=== PATIENT | female | born 1945 | race Caucasian/White ===

== ENCOUNTER 2022-06-13 12:02 | Outpatient (REF) | payer MEDICARE, SELFPAY ==
[2022-06-13 12:26] LABS: MANUAL DIFF FLAG NO
[2022-06-13 13:00] LABS: Basophils Absolute Auto 0.1 X10*3/uL (0.0-0.2); Basophils Percent Auto 1.2 % (0-2); Eosinophils Absolute Auto 0.1 X10*3/uL (0.0-0.4); Eosinophils Percent Auto 2.8 % (0-4); Hematocrit 34.3 % (37.0-47.0); Hemoglobin 10.8 g/dl (12.0-16.0); Imm Gran Abs Auto 0.02 X10*3/uL (0.00-0.03); Imm Gran Pct Auto 0.4 % (0.0-0.4); Lymphocytes Absolute Auto 1.3 X10*3/uL (1.2-4.9); Lymphocytes Percent Auto 25.9 % (20-40); Mean Corpuscular HGB Conc 31.5 g/dl (31.0-35.0); Mean Corpuscular Hemoglobin 25.2 pg (27.0-33.0); Mean Platelet Volume 10.6 fL (9.4-12.3); Monocytes Absolute Auto 0.5 X10*3/uL (0.1-1.2); Monocytes Percent Auto 10.4 % (2-11); Neutrophils Percent Auto 59.3 % (45-73); Platelet Count 311 X10*3/uL (160-400); Red Blood Count 4.29 X10*6/uL (4.20-5.50); Red Cell Distribution Width 19.2 % (11.0-16.0)
[2022-06-13 13:46] LABS: Ferritin 29 ng/mL (10-250)
[2022-06-13 13:52] LABS: Vitamin B12 470 pg/mL (200-900)
== END 2022-06-13 12:03 | disposition home or self-care (01) ==
LOC: HO.LAB 12:02
PROVIDERS: PCP Internal Medicine; Visit Provider Internal Medicine
DX: D64.9 Anemia, unspecified (principal); E03.8 Other specified hypothyroidism; E88.09 Other disorders of plasma-protein metabolism, not elsewhere classified; I10 Essential (primary) hypertension
CPT/HCPCS: 36415; 82607; 82728; 84443; 85025

== ENCOUNTER 2023-02-04 15:29 | Outpatient (REF) | payer MEDICARE, SELFPAY ==
[2023-02-04 16:58] LABS: Basophils Percent Auto 0.7 % (0-2); Imm Gran Abs Auto 0.01 X10*3/uL (0.00-0.03); Imm Gran Pct Auto 0.2 % (0.0-0.4); MANUAL DIFF FLAG SCAN; Red Cell Distribution Width 21.2 % (11.0-16.0); SCAN SMEAR FLAG 1
[2023-02-04 17:00] LABS: Lymphocytes Absolute Auto 1.1 X10*3/uL (1.2-4.9); Lymphocytes Percent Auto 27.5 % (20-40); Mean Corpuscular HGB Conc 28.3 g/dl (31.0-35.0); Mean Corpuscular Hemoglobin 19.9 pg (27.0-33.0); Mean Corpuscular Volume 70.5 fL (80.0-98.0); Monocytes Absolute Auto 0.3 X10*3/uL (0.1-1.2); Neutrophils Absolute Auto 2.6 x10*3/uL (2.0-8.3); Neutrophils Percent Auto 63.6 % (45-73); Platelet Count 248 X10*3/uL (160-400); Red Blood Count 2.81 X10*6/uL (4.20-5.50); White Blood Count 4.1 X10*3/uL (4.8-10.8)
[2023-02-04 17:10] LABS: PLT ABN DIST 1
[2023-02-04 17:13] LABS: Hemoglobin 5.6 g/dl (12.0-16.0)
[2023-02-04 17:14] LABS: Hematocrit 19.8 % (37.0-47.0)
[2023-02-04 17:23] LABS: SLIDE REVIEW VERIFIED
[2023-02-04 17:45] LABS: Alanine Aminotransferase 21 U/L (0-31); Albumin Level 3.1 g/dL (3.5-5.0); Alkaline Phosphatase 72 U/L (39-117); Anion Gap 12 (12-20); Aspartate Amino Transferase 26 U/L (5-31); Bilirubin Total 0.2 mg/dL (0.0-1.0); Blood Urea Nitrogen 20 mg/dL (9-16); Calcium 8.5 mg/dL (8.4-10.2); Carbon Dioxide 22 mmol/L (22-29); Chloride 106 mmol/L (96-108); Cholesterol 142 mg/dL; Estimated Glomerular Filt Rate > 60; Glucose Random 89 mg/dL (60-115); HDL Cholesterol 36 mg/dL; LDL Cholesterol Calculated 94 mg/dl; Potassium 4.8 mmol/L (3.3-5.1); Sodium 135 mmol/L (135-145); Total Protein 7.7 g/dL (6.5-8.0); Triglycerides 64 mg/dL
[2023-02-04 17:48] LABS: Ferritin 10 ng/mL (10-250); Thyroid Stimulating Hormone 0.69 uIU/mL (0.32-4.0)
== END 2023-02-04 15:30 | disposition home or self-care (01) ==
LOC: HO.LAB 15:29
PROVIDERS: PCP Internal Medicine; Visit Provider Internal Medicine
DX: I10 Essential (primary) hypertension (principal); D50.8 Other iron deficiency anemias; E03.8 Other specified hypothyroidism; K59.00 Constipation, unspecified
CPT/HCPCS: 36415; 80053; 80061; 82728; 84443; 85025

== ENCOUNTER 2023-02-05 14:59 | Emergency (ER) | payer MEDICARE, SELFPAY ==
[2023-02-05] VITALS (9 sets, daily range): BP systolic 103–137; BP diastolic 53–64; PULSE 92–107; RESP 16–20; TEMP 36.6–36.8; O2SAT 96–99; BMI 32.3
--- NOTE | ~2023-02-05 | CT_ITS ---
EXAMINATION: CT CHEST, ABDOMEN AND PELVIS WITH CONTRAST CLINICAL INFORMATION: Trauma. Fall. COMPARISON: None. TECHNIQUE: Multidetector volumetric CT imaging of the chest, abdomen and pelvis was obtained after the administration of 85 mL of intravenous Omnipaque 350 without immediate adverse reactions. Coronal and sagittal formatted images are performed at CT scanner [This CT examination was performed using dose optimization techniques as appropriate, variously including the following: *Automated exposure control *Adjustment of mA and/or kV according to patient size (this includes techniques or standardized protocols for targeted exams where dose is matched to indication/reason for exam; i.e. extremities or head) *Use of iterative reconstruction technique] DLP: 1203 mGy-cm. FINDINGS: CT CHEST: Lungs: The lungs are clear with no evidence of inflammation or nodules. Mediastinum: Heart size is normal. No pericardial effusion. No aneurysm of aorta. Small volume of vascular calcifications of thoracic aortic arch and descending aorta. Moderate volume of coronary calcification. Thyroid is unremarkable. Pleura: There is no pleural effusion. No pleural mass or thickening. Axilla: No lymphadenopathy. CT ABDOMEN AND PELVIS: Liver, Gallbladder and Biliary Tree: The liver is normal in size, shape, and attenuation. No suspicious focal hepatic lesion or biliary ductal dilatation is present. Small hepatic cyst cardiac lobe of liver. The gallbladder is unremarkable with no evidence of radiopaque gallstones, gallbladder wall thickening, or obvious pericholecystic inflammatory changes. Pancreas: No acute change of the pancreas. No mass. No pancreatic duct dilatation. Spleen: Spleen normal in size and contour. No focal lesion. Adrenal Glands: Adrenal glands are normal in size. No focal mass. Kidneys and Ureters: The kidneys are normal in size, shape, and attenuation. No hydronephrosis, hydroureter, or calculi seen. No perinephric stranding. Bladder: Unremarkable. Gastrointestinal Tract: No acute abnormality of the colon. There are few diverticula sigmoid colon with no evidence of diverticulitis. There is no bowel obstruction. There is a moderate to large volume of stool in the colon. The appendix is normal . The small bowel loops are unremarkable. The stomach is normal. There is moderate-sized hiatal hernia. Mesentery: No focal inflammation. No free fluid. No free air. Abdominal Wall: No significant hernia is appreciated. Lymph Nodes: Normal. Vascular: Vascular calcifications in the abdomen and the pelvis. There is no aneurysm. Pelvic Viscera: Uterus is absent. Osseous Structures: There is no acute osseous abnormality. Grade 2 anterolisthesis of L5 on S1 with complete loss of height of the disc. Bilateral spondylolysis L5 pars interarticularis. Chronic compression deformity of L1 with near complete loss of height of the vertebral body. There is about 25% loss of height of T10 which is chronic as well. Multilevel degenerative spondylosis spine. CT/CT abdomen pelvis w IV con IMPRESSION: No acute abnormality of the chest, abdomen or pelvis.
--- NOTE | ~2023-02-05 | CT_ITS ---
CT HEAD WITHOUT IV CONTRAST CT CERVICAL SPINE WITHOUT IV CONTRAST CT MAXILLOFACIAL WITHOUT IV CONTRAST INDICATION: Fall with pain. COMPARISON: None available. TECHNIQUE: Multidetector CT acquisitions of the head, maxillofacial region, and cervical spine were obtained without IV contrast. Multiplanar reformats were acquired and utilized for image interpretation. This CT examination was performed using dose optimization techniques as appropriate, variously including the following: *Automated exposure control *Adjustment of mA and/or kV according to patient size (this includes techniques or standardized protocols for targeted exams where dose is matched to indication/reason for exam; i.e. extremities or head) *Use of iterative reconstruction technique FINDINGS: HEAD: There is global cerebral volume loss and there is mild to moderate chronic microangiopathy. There is no intracranial hemorrhage, hydrocephalus, extra-axial surface collection, midline shift, or other herniation pattern. There is a punctate calcification within the dorsal cortex of the left frontal lobe on image 62 of series 4. Sanford to white matter differentiation is diffusely maintained without evidence of an evolved acute territorial infarct. The basilar cisterns are preserved. No significant soft tissue abnormality. No acute osseous abnormality. The paranasal sinuses and the mastoid air cells are well aerated. MAXILLOFACIAL: Motion degraded maxillofacial CT study. No definite acute maxillofacial fractures accounting for motion artifact. Anterior right frontal scalp and right periorbital soft tissue swelling. CERVICAL SPINE: There is a small cortical erosion fracture fragment off the alar ligament insertion of the inferomedial left occipital condyle. No additional acute fractures within the cervical spine. Slight degenerative anterior subluxation of C3 on C4 in the setting of advanced facet arthropathy at this level. There is moderate disc volume loss at C2-C3 and there is moderate to severe disc volume loss at C5-C6. Multilevel endplate osteophytes. The craniocervical junction is unremarkable. Partially imaged pulmonary nodules, diagnostically assessed on the corresponding chest CT. Atherosclerotic calcification involving the carotid bifurcations bilaterally. CT/CT cervical spine wo IV con IMPRESSION: - No acute intracranial findings. There is global cerebral volume loss and there is mild to moderate chronic microangiopathy. - Motion degraded maxillofacial CT study. No definite acute maxillofacial fractures accounting for motion artifact. Anterior right frontal scalp and right periorbital soft tissue swelling. - There is a small cortical erosion fracture fragment off the alar ligament insertion of the inferomedial left occipital condyle. No additional acute fractures within the cervical spine. Cervical spondylosis.
--- NOTE | ~2023-02-05 | XR_ITS ---
EXAMINATION: XR CHEST CLINICAL INFORMATION: Weakness COMPARISON: None available. TECHNIQUE: 2 views of the chest were obtained. FINDINGS: There is no evidence of acute parenchymal disease, pneumothorax, or pleural effusion. Heart normal size. No evidence of pulmonary edema. There is a moderate to large hiatal hernia present. XR/XR chest 2V IMPRESSION: No acute disease.
--- NOTE | 2023-02-05 15:24 | ED.FALL ---
HPI - Fall General Chief Complaint: Fall <Ivis Mckinnon NP - Last Filed: 02/05/23 15:30> Stated Complaint: fell/ eye injury <Ivis Mckinnon NP - Last Filed: 02/05/23 15:30> Time Seen by Provider: 02/05/23 16:07 <Ivis Mckinnon NP - Last Filed: 02/05/23 15:30> Source: patient <JUANITO Solano - Last Filed: 02/05/23 20:29> Mode of arrival: ambulatory <JUANITO Solano - Last Filed: 02/05/23 20:29> Limitations: no limitations <JUANITO Solano - Last Filed: 02/05/23 20:29> History of Present Illness HPI Narrative: This is a 77-year-old female presenting to the emergency department status post fall that occurred this morning. According to patient she got up from her bed and had to go to the bathroom she got up very quickly felt lightheaded and fell. She tells me she hit her head, loss consciousness however unsure for how long. She tells me she was unable to get off the ground on her own, unsure how long she was on the ground for. She also mentions that yesterday she saw her PCP who told her that she was very anemic, she reports her hemoglobin was 5.9 in she is worried that this is likely contributing to her symptoms. Patient reports that this fall occurred at approximately 07:30 this morning. Patient also reporting that recently she has been getting substernal chest pressure with ambulation and exertion and shortness of breath this is new within the past few weeks. Patient gets IVIG transfusions every 10 weeks. At this time patient denying chest pain, shortness of breath, headache, vision changes, pain with eye movements, nausea, vomiting, abdominal pain, fevers, chills, weakness. Patient not on blood GCS of 15. NIH stroke scale 0. Patient walked into room. <JUANITO Solano - Last Filed: 02/05/23 20:29> Related Data Home Medications: Home Medications Medication Instructions Recorded Confirmed carbidopa 25 mg-levodopa 100 mg 1 tab PO TID 02/05/23 02/05/23 tablet cyanocobalamin (vitamin B-12) 1,000 mcg PO DAILY 02/05/23 02/05/23 1,000 mcg tablet ferrous gluconate 324 mg (38 mg 324 mg PO DAILY 02/05/23 02/05/23 iron) tablet ibuprofen 600 mg tablet 600 mg PO TID PRN Pain 02/05/23 02/05/23 immune glob,gamm(IgG) 10%-sorb-IgA 1,200 ml IV Q3W 02/05/23 02/05/23 0 to 50 mcg/mL intravenous solution levothyroxine 175 mcg capsule 175 mcg PO DAILY 02/05/23 02/05/23 lisinopril 10 mg tablet 10 mg PO DAILY 02/05/23 02/05/23 mycophenolate mofetil 250 mg 500 mg PO BID 02/05/23 02/05/23 capsule omeprazole 20 mg capsule,delayed 20 mg PO DAILY@1630 02/05/23 02/05/23 release zolpidem 5 mg tablet 5 mg PO BEDTIME PRN Insomnia 02/05/23 02/05/23 <Ivis Mckinnon NP - Last Filed: 02/05/23 15:30> Allergies/Adverse Reactions: Allergies Allergy/AdvReac Type Severity Reaction Status Date / Time Sulfa (Sulfonamide Allergy Vomiting Verified 02/05/23 15:25 Antibiotics) <Ivis Mckinnon NP - Last Filed: 02/05/23 15:30> Review of Systems Review of Systems: Constitutional : No Weight loss, No Fever, No Chills, No Fatigue, No Malaise ENT/Mouth : No sore throat, No Rhinorrhea Eyes: No Eye Pain, No Swelling, No Redness Cardiovascular : No Chest Pain, No SOB, No Dyspnea on Exertion, No Orthopnea, No Edema, No Palpitations Respiratory : No Cough, No Sputum, No Wheezing Gastrointestinal : No Nausea, No Vomiting, No Diarrhea, No Constipation, No abdominal Pain, No Hematochezia, No Melena Genitourinary : No Dysuria, No Urinary Frequency, No Hematuria, Musculoskeletal : No joint pain, No Myalgias, No Joint Swelling Skin : No Skin Lesions, No rash, + bruising Neuro : No Weakness, No Numbness, No Dizziness, No Headache Psych : No Anxiety/Panic, No Depression All other systems reviewed and are negative <JUANITO Solano - Last Filed: 02/05/23 20:29> Yes all other systems are reviewed and are negative <JUANITO Solano - Last Filed: 02/05/23 20:29> [facility] Past Medical History Attestation statement: The following information was validated with the patient. <JUANITO Solano - Last Filed: 02/05/23 20:29> Source: old records reviewed and nursing notes reviewed <JUANITO Solano - Last Filed: 02/05/23 20:29> Social History Social History: Social History Alcohol intake: never Smoked in Last 30 Days: No Use of substances other than those prescribed or required for medical reasons: No Advance Directives: No Advance Directives Information Provided: No <Ivis Mckinnon NP - Last Filed: 02/05/23 15:30> Physical Exam Vital Signs: Vital Signs: Last Vital Signs Temp 98.1 F 02/05/23 19:24 Pulse 94 02/05/23 19:24 Resp 16 02/05/23 19:24 BP 115/53 L 02/05/23 19:24 Pulse Ox 96 02/05/23 19:02 O2 Del Method Room Air 02/05/23 19:02 BMI result Body Mass Index 32.3 <Ivis Mckinnon NP - Last Filed: 02/05/23 15:30> Vital Signs: Last Vital Signs Temp 98.1 F 02/05/23 19:24 Pulse 94 02/05/23 19:24 Resp 16 02/05/23 19:24 BP 115/53 L 02/05/23 19:24 Pulse Ox 96 02/05/23 19:02 O2 Del Method Room Air 02/05/23 19:02 BMI result Body Mass Index 32.3 vss <JUANITO Solano - Last Filed: 02/05/23 20:29> Appearance: Alert.? Oriented X3.? No acute distress.? Head: Normocephalic, atraumatic, no step-offs or deformities Eyes: Pupils equal, round and reactive to light.? Large area of ecchymosis overlying the right periorbital region, forehead and zygomatic region . EOMI pain free. ENT: Pharynx normal.? Neck: Normal inspection.? Neck supple.? No C-spine tenderness ( in collar) CVS: Rapid rate 110 normal rhythm likely sinus tachycardia.? Pulses normal.? Respiratory: No respiratory distress.? Breath sounds normal.? Abdomen: Soft and nontender.? Skin: Skin warm and dry.? Normal skin color.? Normal skin turgor.? Extremities: No lower extremity edema.? No calf ttp. 5/5 strength to bilateral upper and lower extremities Neuro: Oriented X 3.? No motor deficit.? No sensory deficit. CN 2-12 intact . Ambulating with steady gait normal coordination. Negative Romberg and pronator drift. Normal [id number]. Rectal: normal rectal tone brown soft stool in rectal vault. No gross blood. <JUANITO Solano - Last Filed: 02/05/23 20:29> Course Course Course Narrative: This is a rapid medical exam. Deferred additional HPI, ROS, PE to primary provider. 77 yo female with past medical history of KURTIS, parkinsons disease, spinal stenosis, demyelinating syndrome, HTN here with complaints of abnormal labs drawn yesterday with low h/h, had fall today hitting her face d/t feeling weak. hgb 5.6 from yesterday. Patient will need labs including type and screen, EKG, CT head/facial blowing/cervical spine, chest x-ray, orthostatic vital signs. Anticipate admission <Ivis Mckinnon NP - Last Filed: 02/05/23 15:30> Reevaluation(s) Reevaluation #1: Patient's CBC demonstrating a microcytic anemia hemoglobin 5.1, hematocrit 17.8 I suspect acute blood loss anemia from possible lower GI bleed PRBC 2 units ordered. Patient denies bright red blood per stool but a microscopic bleed is possible. Chemistry with elevated BUN likely secondary to dehydration. Lactic acid within normal limits. No other electrolyte abnormalities requiring intervention. COVID negative. Chest x-ray unremarkable. OBS, CT of head, neck, chest, abdomen, pelvic and facial bones pending. <JUANITO Solano - Last Filed: 02/05/23 20:29> Time: 19:00 <JUANITO Solano - Last Filed: 02/05/23 20:29> Reevaluation #2: OBS +. CT of head with no acute intracranial findings. There is global cerebral volume loss. Motion degenerated maxillofacial CT study no definite acute maxillofacial fractures. Anterior right frontal scalp and right periorbital soft tissue swelling noted. There is a small cortical erosion fracture fragment off of the Aller ligament insertion of the inferomedial left occipital condyle. On palpation patient does not have cervical spine tenderness. Patient was ambulatory into the department from home. Will reach out to [facility] for input on this finding. CT of chest, abdomen pelvis pending. <JUANITO Solano - Last Filed: 02/05/23 20:29> Time: 19:57 <JUANITO Solano - Last Filed: 02/05/23 20:29> Reevaluation #3: No acute abnormality in the chest, abdomen or pelvis. Category 2 trauma to [facility] ED Dr. Bravo due to cervical spine fracture. <JUANITO Solano - Last Filed: 02/05/23 20:29> Time: 20:08 <JUANITO Solano - Last Filed: 02/05/23 20:29> Medications Administered Discontinued Medications Generic Name Dose Route Start Last Admin Trade Name Freq PRN Reason Stop Dose Admin Sodium Chloride 1,000 mls @ 999 mls/hr 02/05/23 17:15 02/05/23 19:17 Ns IV 02/05/23 18:15 Infused .Q1H1M MARTHA Infusion Iohexol 100 ml 02/05/23 18:13 02/05/23 18:13 Iohexol 350 Mg/Ml 100 Ml Infus..Btl IV 02/05/23 18:14 85 ml ONCE ONE Administration <Ivis Mckinnon NP - Last Filed: 02/05/23 15:30> Medications Administered Discontinued Medications Generic Name Dose Route Start Last Admin Trade Name Freq PRN Reason Stop Dose Admin Sodium Chloride 1,000 mls @ 999 mls/hr 02/05/23 17:15 02/05/23 19:17 Ns IV 02/05/23 18:15 Infused .Q1H1M MARTHA Infusion Iohexol 100 ml 02/05/23 18:13 02/05/23 18:13 Iohexol 350 Mg/Ml 100 Ml Infus..Btl IV 02/05/23 18:14 85 ml ONCE ONE Administration <JUANITO Solano Last Filed: 02/05/23 20:29> Medical Decision Making Medical Decision Making [facility] Narrative: 1620 77-year-old female presents status post fall this morning was told by PCP yesterday that she was anemic. Physical exam significant for Pupils equal, round and reactive to light.? Large area of ecchymosis overlying the right periorbital region and zygomatic region . EOMI pain free. Regular rate fast rhythm likely sinus tachycardia. Breath sounds clear. Concerns for possible orbital fracture/ zygomatic fracture/ nasal fx. Unlikley blow out fx no signs of nerve entrapment. Patient fell hit her head also concern for intracranial hemorrhage. No signs of stroke, posterior stroke on my exam. I suspect patient cell likely secondary to orthostatic hypotension secondary to acute blood loss anemia. Tachycardia likely secondary to anemia. Unlikely from infection. I do not suspect CHF, ACS or PE based off patient history. Will rule out traumatic injuries to chest, abdomen and pelvis. I will obtain an OBS to rule out lower GI bleed as potential cause for iron deficiency anemia Plan labs, imaging, urine. <JUANITO Solano Last Filed: 02/05/23 20:29> Differential Diagnosis Differential Diagnoses: The differential diagnosis associated with the presentation includes <JUANITO Solano Last Filed: 02/05/23 20:29> Concerns for possible orbital fracture/ zygomatic fracture/ nasal fx. Unlikley blow out fx no signs of nerve entrapment. Patient fell hit her head also concern for intracranial hemorrhage. No signs of stroke, posterior stroke on my exam. I suspect patient cell likely secondary to orthostatic hypotension secondary to acute blood loss anemia. Tachycardia likely secondary to anemia. Unlikely from infection. I do not suspect CHF, ACS or PE based off patient history. Will rule out traumatic injuries to chest, abdomen and pelvis. I will obtain an OBS to rule out lower GI bleed as potential cause for iron deficiency anemia <JUANITO Solano Last Filed: 02/05/23 20:29> Admission/Observation Consideration of admission/observation: Escalation of care including admission/observation considered <JUANITO Solano - Last Filed: 02/05/23 20:29> Patient will likely require hospital admission <JUANITO Solano - Last Filed: 02/05/23 20:29> Consult Healthcare Provider Management of the patient was discussed with: Hospitalist <JUANITO Solano - Last Filed: 02/05/23 20:29> Lab Data MDM Lab Attestation statement: I reviewed the patient's lab results. <JUANITO Solano - Last Filed: 02/05/23 20:29> Result Diagrams: 02/05/23 16:29 02/05/23 16:29 <Ivis Mckinnon NP - Last Filed: 02/05/23 15:30> Labs: Lab Results 02/05/23 02/05/23 02/05/23 Range/Units 16:29 16:29 16:29 WBC 6.0 (4.8-10.8) X10*3/uL RBC 2.56 L (4.20-5.50) X10*6/uL Hgb 5.1 L* (12.0-16.0) g/dl Hct 17.8 L* (37.0-47.0) % MCV 69.5 L (80.0-98.0) fL MCH 19.9 L (27.0-33.0) pg MCHC 28.7 L (31.0-35.0) g/dl RDW 21.3 H (11.0-16.0) % Plt Count 241 (160-400) X10*3/uL MPV 11.3 (9.4-12.3) fL Immature Gran % (Auto) 0.5 H (0.0-0.4) % Neut % (Auto) 71.2 (45-73) % Lymph % (Auto) 15.6 L (20-40) % [place] % (Auto) 9.4 (2-11) % Eos % (Auto) 2.8 (0-4) % Baso % (Auto) 0.5 (0-2) % Lymph # (Auto) 0.9 L (1.2-4.9) X10*3/uL [place] # (Auto) 0.6 (0.1-1.2) X10*3/uL Eos # (Auto) 0.2 (0.0-0.4) X10*3/uL Baso # (Auto) 0.0 (0.0-0.2) X10*3/uL Abs Immat Gran (auto) 0.03 (0.00-0.03) X10*3/uL Absolute Neuts (auto) 4.3 (2.0-8.3) x10*3/uL Absolute Nucleated RBC 0.000 (0.0-0.012) X10*3/uL Nucleated RBC % (auto) 0.0 (0.0-0.2) /100WBC Smear Tech's Comments VERIFIED PT 11.3 (10.0-13.1) SEC INR 1.0 (0.9-1.1) Sodium 136 (135-145) mmol/L Potassium 4.6 (3.3-5.1) mmol/L Chloride 108 (96-108) mmol/L Carbon Dioxide 22 (22-29) mmol/L Anion Gap 11 L (12-20) BUN 29 H (9-16) mg/dL Creatinine 0.82 (0.5-1.4) mg/dL Estim Creat Clear Calc 49.0 Estimated GFR > 60 Random Glucose 94 (60-115) mg/dL Lactic Acid (0.5-2.0) mmol/L Calcium 8.4 (8.4-10.2) mg/dL Total Bilirubin 0.2 (0.0-1.0) mg/dL Direct Bilirubin < 0.2 (0.0-0.5) mg/dL AST 27 (5-31) U/L ALT 24 (0-31) U/L Alkaline Phosphatase 72 (39-117) U/L Troponin I High Sens (<3.5-17.0) ng/L B-Natriuretic Peptide (<100) pg/mL Total Protein 7.2 (6.5-8.0) g/dL Albumin 3.0 L (3.5-5.0) g/dL Stool Occult Blood (NEGATIVE) COVID-19 ([facility]) (Negative) COVID-19 Clin Com Blood Type Antibody Screen Crossmatch 02/05/23 02/05/23 02/05/23 Range/Units 16:29 16:29 16:29 WBC (4.8-10.8) X10*3/uL RBC (4.20-5.50) X10*6/uL Hgb (12.0-16.0) g/dl Hct (37.0-47.0) % MCV (80.0-98.0) fL MCH (27.0-33.0) pg MCHC (31.0-35.0) g/dl RDW (11.0-16.0) % Plt Count (160-400) X10*3/uL MPV (9.4-12.3) fL Immature Gran % (Auto) (0.0-0.4) % Neut % (Auto) (45-73) % Lymph % (Auto) (20-40) % [place] % (Auto) (2-11) % Eos % (Auto) (0-4) % Baso % (Auto) (0-2) % Lymph # (Auto) (1.2-4.9) X10*3/uL [place] # (Auto) (0.1-1.2) X10*3/uL Eos # (Auto) (0.0-0.4) X10*3/uL Baso # (Auto) (0.0-0.2) X10*3/uL Abs Immat Gran (auto) (0.00-0.03) X10*3/uL Absolute Neuts (auto) (2.0-8.3) x10*3/uL Absolute Nucleated RBC (0.0-0.012) X10*3/uL Nucleated RBC % (auto) (0.0-0.2) /100WBC Smear Tech's Comments PT (10.0-13.1) SEC INR (0.9-1.1) Sodium (135-145) mmol/L Potassium (3.3-5.1) mmol/L Chloride (96-108) mmol/L Carbon Dioxide (22-29) mmol/L Anion Gap (12-20) BUN (9-16) mg/dL Creatinine (0.5-1.4) mg/dL Estim Creat Clear Calc Estimated GFR Random Glucose (60-115) mg/dL Lactic Acid (0.5-2.0) mmol/L Calcium (8.4-10.2) mg/dL Total Bilirubin (0.0-1.0) mg/dL Direct Bilirubin (0.0-0.5) mg/dL AST (5-31) U/L ALT (0-31) U/L Alkaline Phosphatase (39-117) U/L Troponin I High Sens 15.7 (<3.5-17.0) ng/L B-Natriuretic Peptide 44 (<100) pg/mL Total Protein (6.5-8.0) g/dL Albumin (3.5-5.0) g/dL Stool Occult Blood (NEGATIVE) COVID-19 ([facility]) Negative (Negative) COVID-19 Clin Com See Note Blood Type Antibody Screen Crossmatch 02/05/23 02/05/23 02/05/23 Range/Units 16:35 16:36 17:05 WBC (4.8-10.8) X10*3/uL RBC (4.20-5.50) X10*6/uL Hgb (12.0-16.0) g/dl Hct (37.0-47.0) % MCV (80.0-98.0) fL MCH (27.0-33.0) pg MCHC (31.0-35.0) g/dl RDW (11.0-16.0) % Plt Count (160-400) X10*3/uL MPV (9.4-12.3) fL Immature Gran % (Auto) (0.0-0.4) % Neut % (Auto) (45-73) % Lymph % (Auto) (20-40) % [place] % (Auto) (2-11) % Eos % (Auto) (0-4) % Baso % (Auto) (0-2) % Lymph # (Auto) (1.2-4.9) X10*3/uL [place] # (Auto) (0.1-1.2) X10*3/uL Eos # (Auto) (0.0-0.4) X10*3/uL Baso # (Auto) (0.0-0.2) X10*3/uL Abs Immat Gran (auto) (0.00-0.03) X10*3/uL Absolute Neuts (auto) (2.0-8.3) x10*3/uL Absolute Nucleated RBC (0.0-0.012) X10*3/uL Nucleated RBC % (auto) (0.0-0.2) /100WBC Smear Tech's Comments PT (10.0-13.1) SEC INR (0.9-1.1) Sodium (135-145) mmol/L Potassium (3.3-5.1) mmol/L Chloride (96-108) mmol/L Carbon Dioxide (22-29) mmol/L Anion Gap (12-20) BUN (9-16) mg/dL Creatinine (0.5-1.4) mg/dL Estim Creat Clear Calc Estimated GFR Random Glucose (60-115) mg/dL Lactic Acid 0.6 (0.5-2.0) mmol/L Calcium (8.4-10.2) mg/dL Total Bilirubin (0.0-1.0) mg/dL Direct Bilirubin (0.0-0.5) mg/dL AST (5-31) U/L ALT (0-31) U/L Alkaline Phosphatase (39-117) U/L Troponin I High Sens (<3.5-17.0) ng/L B-Natriuretic Peptide (<100) pg/mL Total Protein (6.5-8.0) g/dL Albumin (3.5-5.0) g/dL Stool Occult Blood POSITIVE (NEGATIVE) COVID-19 ([facility]) (Negative) COVID-19 Clin Com Blood Type O Positive Antibody Screen NEGATIVE Crossmatch See Detail <Ivis Mckinnon NP - Last Filed: 02/05/23 15:30> Lab Results 02/05/23 02/05/23 02/05/23 Range/Units 16:29 16:29 16:29 WBC 6.0 (4.8-10.8) X10*3/uL RBC 2.56 L (4.20-5.50) X10*6/uL Hgb 5.1 L* (12.0-16.0) g/dl Hct 17.8 L* (37.0-47.0) % MCV 69.5 L (80.0-98.0) fL MCH 19.9 L (27.0-33.0) pg MCHC 28.7 L (31.0-35.0) g/dl RDW 21.3 H (11.0-16.0) % Plt Count 241 (160-400) X10*3/uL MPV 11.3 (9.4-12.3) fL Immature Gran % (Auto) 0.5 H (0.0-0.4) % Neut % (Auto) 71.2 (45-73) % Lymph % (Auto) 15.6 L (20-40) % [place] % (Auto) 9.4 (2-11) % Eos % (Auto) 2.8 (0-4) % Baso % (Auto) 0.5 (0-2) % Lymph # (Auto) 0.9 L (1.2-4.9) X10*3/uL [place] # (Auto) 0.6 (0.1-1.2) X10*3/uL Eos # (Auto) 0.2 (0.0-0.4) X10*3/uL Baso # (Auto) 0.0 (0.0-0.2) X10*3/uL Abs Immat Gran (auto) 0.03 (0.00-0.03) X10*3/uL Absolute Neuts (auto) 4.3 (2.0-8.3) x10*3/uL Absolute Nucleated RBC 0.000 (0.0-0.012) X10*3/uL Nucleated RBC % (auto) 0.0 (0.0-0.2) /100WBC Smear Tech's Comments VERIFIED PT 11.3 (10.0-13.1) SEC INR 1.0 (0.9-1.1) Sodium 136 (135-145) mmol/L Potassium 4.6 (3.3-5.1) mmol/L Chloride 108 (96-108) mmol/L Carbon Dioxide 22 (22-29) mmol/L Anion Gap 11 L (12-20) BUN 29 H (9-16) mg/dL Creatinine 0.82 (0.5-1.4) mg/dL Estim Creat Clear Calc 49.0 Estimated GFR > 60 Random Glucose 94 (60-115) mg/dL Lactic Acid (0.5-2.0) mmol/L Calcium 8.4 (8.4-10.2) mg/dL Total Bilirubin 0.2 (0.0-1.0) mg/dL Direct Bilirubin < 0.2 (0.0-0.5) mg/dL AST 27 (5-31) U/L ALT 24 (0-31) U/L Alkaline Phosphatase 72 (39-117) U/L Troponin I High Sens (<3.5-17.0) ng/L B-Natriuretic Peptide (<100) pg/mL Total Protein 7.2 (6.5-8.0) g/dL Albumin 3.0 L (3.5-5.0) g/dL Stool Occult Blood (NEGATIVE) COVID-19 ([facility]) (Negative) COVID-19 Clin Com Blood Type Antibody Screen Crossmatch 02/05/23 02/05/23 02/05/23 Range/Units 16:29 16:29 16:29 WBC (4.8-10.8) X10*3/uL RBC (4.20-5.50) X10*6/uL Hgb (12.0-16.0) g/dl Hct (37.0-47.0) % MCV (80.0-98.0) fL MCH (27.0-33.0) pg MCHC (31.0-35.0) g/dl RDW (11.0-16.0) % Plt Count (160-400) X10*3/uL MPV (9.4-12.3) fL Immature Gran % (Auto) (0.0-0.4) % Neut % (Auto) (45-73) % Lymph % (Auto) (20-40) % [place] % (Auto) (2-11) % Eos % (Auto) (0-4) % Baso % (Auto) (0-2) % Lymph # (Auto) (1.2-4.9) X10*3/uL [place] # (Auto) (0.1-1.2) X10*3/uL Eos # (Auto) (0.0-0.4) X10*3/uL Baso # (Auto) (0.0-0.2) X10*3/uL Abs Immat Gran (auto) (0.00-0.03) X10*3/uL Absolute Neuts (auto) (2.0-8.3) x10*3/uL Absolute Nucleated RBC (0.0-0.012) X10*3/uL Nucleated RBC % (auto) (0.0-0.2) /100WBC Smear Tech's Comments PT (10.0-13.1) SEC INR (0.9-1.1) Sodium (135-145) mmol/L Potassium (3.3-5.1) mmol/L Chloride (96-108) mmol/L Carbon Dioxide (22-29) mmol/L Anion Gap (12-20) BUN (9-16) mg/dL Creatinine (0.5-1.4) mg/dL Estim Creat Clear Calc Estimated GFR Random Glucose (60-115) mg/dL Lactic Acid (0.5-2.0) mmol/L Calcium (8.4-10.2) mg/dL Total Bilirubin (0.0-1.0) mg/dL Direct Bilirubin (0.0-0.5) mg/dL AST (5-31) U/L ALT (0-31) U/L Alkaline Phosphatase (39-117) U/L Troponin I High Sens 15.7 (<3.5-17.0) ng/L B-Natriuretic Peptide 44 (<100) pg/mL Total Protein (6.5-8.0) g/dL Albumin (3.5-5.0) g/dL Stool Occult Blood (NEGATIVE) COVID-19 ([facility]) Negative (Negative) COVID-19 Clin Com See Note Blood Type Antibody Screen Crossmatch 02/05/23 02/05/23 02/05/23 Range/Units 16:35 16:36 17:05 WBC (4.8-10.8) X10*3/uL RBC (4.20-5.50) X10*6/uL Hgb (12.0-16.0) g/dl Hct (37.0-47.0) % MCV (80.0-98.0) fL MCH (27.0-33.0) pg MCHC (31.0-35.0) g/dl RDW (11.0-16.0) % Plt Count (160-400) X10*3/uL MPV (9.4-12.3) fL Immature Gran % (Auto) (0.0-0.4) % Neut % (Auto) (45-73) % Lymph % (Auto) (20-40) % [place] % (Auto) (2-11) % Eos % (Auto) (0-4) % Baso % (Auto) (0-2) % Lymph # (Auto) (1.2-4.9) X10*3/uL [place] # (Auto) (0.1-1.2) X10*3/uL Eos # (Auto) (0.0-0.4) X10*3/uL Baso # (Auto) (0.0-0.2) X10*3/uL Abs Immat Gran (auto) (0.00-0.03) X10*3/uL Absolute Neuts (auto) (2.0-8.3) x10*3/uL Absolute Nucleated RBC (0.0-0.012) X10*3/uL Nucleated RBC % (auto) (0.0-0.2) /100WBC Smear Tech's Comments PT (10.0-13.1) SEC INR (0.9-1.1) Sodium (135-145) mmol/L Potassium (3.3-5.1) mmol/L Chloride (96-108) mmol/L Carbon Dioxide (22-29) mmol/L Anion Gap (12-20) BUN (9-16) mg/dL Creatinine (0.5-1.4) mg/dL Estim Creat Clear Calc Estimated GFR Random Glucose (60-115) mg/dL Lactic Acid 0.6 (0.5-2.0) mmol/L Calcium (8.4-10.2) mg/dL Total Bilirubin (0.0-1.0) mg/dL Direct Bilirubin (0.0-0.5) mg/dL AST (5-31) U/L ALT (0-31) U/L Alkaline Phosphatase (39-117) U/L Troponin I High Sens (<3.5-17.0) ng/L B-Natriuretic Peptide (<100) pg/mL Total Protein (6.5-8.0) g/dL Albumin (3.5-5.0) g/dL Stool Occult Blood POSITIVE (NEGATIVE) COVID-19 ([facility]) (Negative) COVID-19 Clin Com Blood Type O Positive Antibody Screen NEGATIVE Crossmatch See Detail <JUANITO Solano - Last Filed: 02/05/23 20:29> Independent Interpretation I performed an independent interpretation of an: EKG (Ventricular rate of 103, CA normal, QRS normal, QT/QTC normal. EKG with sinus tachycardia no ST elevations or inversions concerning for ischemia.) and Plain X-Ray (XR/XR chest 2V IMPRESSION: No acute disease.) <JUANITO Solano - Last Filed: 02/05/23 20:29> Radiology Impression Discussion of test interpretation with radiology: I have reviewed the radiologist's reading. <JUANITO Solano - Last Filed: 02/05/23 20:29> Core Measures AMI core measures followed: Yes <JUANITO Solano - Last Filed: 02/05/23 20:29> Measure exclusions: not indicated <JUANITO Solano - Last Filed: 02/05/23 20:29> Critical Care Time Critical Care Time Critical Care Time: Yes <JUANITO Solano - Last Filed: 02/05/23 20:29> Total Critical Care Time: 60 <JUANITO Solano - Last Filed: 02/05/23 20:29> Attestation: I attest to this time spent taking care of the patient, obtaining history, physical, reviewing labs, imaging, speaking to my attending, speaking to specialist. <JUANITO Solano - Last Filed: 02/05/23 20:29> Discharge Plan Discharge Clinical Impression: Cervical spine fracture, Concussion without loss of consciousness, Fall, Traumatic ecchymosis of right orbit, Acute blood loss anemia, Acute lower GI bleeding <Ivis Mckinnon NP - Last Filed: 02/05/23 15:30> Patient Disposition: [facility] <Ivis Mckinnon NP - Last Filed: 02/05/23 15:30> Transfer Details: Category 2 trauma to [facility] ED Dr. Bravo due to cervical spine fracture. <Ivis Mckinnon NP - Last Filed: 02/05/23 15:30> Category 2 trauma to [facility] ED Dr. Bravo due to cervical spine fracture. <JUANITO Solano - Last Filed: 02/05/23 20:29> Prescriptions: No Action mycophenolate mofetil 250 mg capsule 500 mg PO BID cyanocobalamin (vitamin B-12) 1,000 mcg Tablet 1,000 mcg PO DAILY lisinopril 10 mg tablet 10 mg PO DAILY omeprazole 20 mg capsule,delayed release(DR/EC) 20 mg PO DAILY@1630 zolpidem 5 mg tablet 5 mg PO BEDTIME PRN (Reason: Insomnia) ibuprofen 600 mg tablet 600 mg PO TID PRN (Reason: Pain) carbidopa-levodopa 25-100 mg tablet 1 tab PO TID ferrous gluconate 324 mg (38 mg iron) tablet 324 mg PO DAILY imm glob G (IgG)-sorb-IgA 0-50 10 % Solution 1,200 ml IV Q3W levothyroxine 175 mcg capsule 175 mcg PO DAILY <Ivis Mckinnon NP - Last Filed: 02/05/23 15:30>
--- NOTE | 2023-02-05 15:28 | ECG_ITS ---
Test Reason : FALL Blood Pressure : / mmHG Vent. Rate : 103 BPM Atrial Rate : 103 BPM P-R Int : 182 ms QRS Dur : 072 ms QT Int : 364 ms P-R-T Axes : 010 030 018 degrees QTc Int : 476 ms Sinus tachycardia Nonspecific T wave abnormality Abnormal ECG No previous ECGs available Referred By: Ivis Mckinnon Electronically Signed By:CASTRO WILLIS MD
--- NOTE | 2023-02-05 16:42 | PC.NURSE ---
pt has visible bruising and swelling in the right orbital area. Pt verbalizes decreased vision in that eye as well. 20g IV placed in LAC, blood work and cultures obtained, awaiting CT scans
[2023-02-05 16:47] LABS: Basophils Percent Auto 0.5 % (0-2); Imm Gran Abs Auto 0.03 X10*3/uL (0.00-0.03); Imm Gran Pct Auto 0.5 % (0.0-0.4); MANUAL DIFF FLAG SCAN; Mean Corpuscular HGB Conc 28.7 g/dl (31.0-35.0); SCAN SMEAR FLAG 1
[2023-02-05 16:49] LABS: Eosinophils Absolute Auto 0.2 X10*3/uL (0.0-0.4); Eosinophils Percent Auto 2.8 % (0-4); Lymphocytes Absolute Auto 0.9 X10*3/uL (1.2-4.9); Lymphocytes Percent Auto 15.6 % (20-40); Mean Corpuscular Hemoglobin 19.9 pg (27.0-33.0); Mean Corpuscular Volume 69.5 fL (80.0-98.0); Mean Platelet Volume 11.3 fL (9.4-12.3); Monocytes Absolute Auto 0.6 X10*3/uL (0.1-1.2); Monocytes Percent Auto 9.4 % (2-11); Neutrophils Absolute Auto 4.3 x10*3/uL (2.0-8.3); Neutrophils Percent Auto 71.2 % (45-73); Platelet Count 241 X10*3/uL (160-400); Red Blood Count 2.56 X10*6/uL (4.20-5.50); Red Cell Distribution Width 21.3 % (11.0-16.0)
[2023-02-05 16:51] LABS: Prothrombin Time 11.3 SEC (10.0-13.1)
[2023-02-05 16:53] LABS: PLT ABN DIST 1
[2023-02-05 16:55] LABS: Hematocrit 17.8 % (37.0-47.0); Hemoglobin 5.1 g/dl (12.0-16.0)
[2023-02-05 16:58] LABS: Lactic Acid 0.6 mmol/L (0.5-2.0)
[2023-02-05 16:59] LABS: COVID-19 Test Negative (Negative); IDNOW Serial# BCCEAD1C
[2023-02-05 17:04] LABS: Alanine Aminotransferase 24 U/L (0-31); Alkaline Phosphatase 72 U/L (39-117); Anion Gap 11 (12-20); Aspartate Amino Transferase 27 U/L (5-31); Bilirubin Direct < 0.2 mg/dL (0.0-0.5); Bilirubin Total 0.2 mg/dL (0.0-1.0); Blood Urea Nitrogen 29 mg/dL (9-16); Calcium 8.4 mg/dL (8.4-10.2); Carbon Dioxide 22 mmol/L (22-29); Chloride 108 mmol/L (96-108); Estimated Glomerular Filt Rate > 60; Glucose Random 94 mg/dL (60-115); Potassium 4.6 mmol/L (3.3-5.1); Sodium 136 mmol/L (135-145); Total Protein 7.2 g/dL (6.5-8.0)
[2023-02-05 17:11] LABS: Troponin-I High Sensitivity 15.7 ng/L (<3.5-17.0)
[2023-02-05 17:12] LABS: SLIDE REVIEW VERIFIED
[2023-02-05 17:17] LABS: OBS Int Ctl Valid YES; OBS1 POSITIVE (NEGATIVE)
[2023-02-05 17:22] LABS: B Type Natriuretic Peptide 44 pg/mL (<100)
--- NOTE | 2023-02-05 17:27 | PHA.MEDREC ---
Pharmacy Consult ? Medication Reconciliation Pharmacy has completed the medication reconciliation. Patient reported all medications. Reports she use to take Benadryl to help sleep but did not like it. Provider prescribed ambien but she has not tried it yet. Patient reports her mychophenolate dose as 2 tabs in the morning and at night. Patient also reported only 1 tablet sinemet 3 times a day. Tracey Perez, [facility]
[2023-02-05] MEDS: 0.9 % Sodium Chloride 1,000 ML 999 ML IV (18:03)
--- NOTE | 2023-02-05 18:05 | PC.NURSE ---
22g IV placed in LFA with no issue. Pt is calm and cooperative, no apparent distress. Alert and oriented x4, respirations even and unlabored. Awaiting blood to be verified
[2023-02-05] MEDS: iohexoL 350 MG/ML 100 ML INFUS..BTL IV (18:13)
--- NOTE | 2023-02-05 19:16 | PC.NURSE ---
blood transfusion started, no apparent distress at this time, VSS. Pt reports feeling well and has no complaints at this time
--- NOTE | 2023-02-05 19:33 | PC.NURSE ---
blood transfusion continues at this time, denies any reaction symptoms
--- NOTE | 2023-02-05 20:08 | PC.NURSE ---
pt placed onto bed hebert, no apparent distress at this time
--- NOTE | 2023-02-05 20:44 | PC.NURSE ---
pt has been placed in C-collar per request of PA
--- NOTE | 2023-02-05 21:15 | PC.NURSE ---
report called to Kanika at [facility], ambulance is here to pick pt up. Pt is calm and cooperative for pickup. first unit of blood not done at this time, Documented as such in the TAR, blood bank called to cancel second unit of blood
== END 2023-02-05 22:04 | disposition short-term general hospital (02) ==
PROVIDERS: Nurse Practitioner Family; Physician Assistant; Emergency Provider Emergency Medicine; PCP Internal Medicine
DX: S12.9XXA Fracture of neck, unspecified, initial encounter (principal); S06.0X0A Concussion without loss of consciousness, initial encounter; R51.9 Headache, unspecified; M54.2 Cervicalgia; R42 Dizziness and giddiness; D64.9 Anemia, unspecified; R06.02 Shortness of breath; R00.0 Tachycardia, unspecified; M54.6 Pain in thoracic spine; R10.9 Unspecified abdominal pain; W06.XXXA Fall from bed, initial encounter; Y93.9 Activity, unspecified; Y92.009 Unspecified place in unspecified non-institutional (private) residence as the place of occurrence of the external cause; Y99.9 Unspecified external cause status; Z20.822 Contact with and (suspected) exposure to COVID-19; Z20.828 Contact with and (suspected) exposure to other viral communicable diseases; Z79.899 Other long term (current) drug therapy
CPT/HCPCS: 36415; 36430; 70450; 70486; 71046; 71260; 72125; 74177; 80048; 80076; 82272; 83605; 83880; 84484; 85025; 85610; 86850; 86900; 86901; 86923; 87040; 87635; 93005; 96360; 99285; P9016; Q9967

== ENCOUNTER 2023-02-19 14:37 | Outpatient (REF) | payer MEDICARE, SELFPAY ==
[2023-02-19 14:54] LABS: MANUAL DIFF FLAG NO
[2023-02-19 15:25] LABS: Basophils Absolute Auto 0.1 X10*3/uL (0.0-0.2); Basophils Percent Auto 1.2 % (0-2); Imm Gran Abs Auto 0.01 X10*3/uL (0.00-0.03); Imm Gran Pct Auto 0.2 % (0.0-0.4); Monocytes Absolute Auto 0.4 X10*3/uL (0.1-1.2); Neutrophils Absolute Auto 2.6 x10*3/uL (2.0-8.3); SCAN SMEAR FLAG 1
[2023-02-19 15:27] LABS: Eosinophils Percent Auto 0.5 % (0-4); Hematocrit 35.7 % (37.0-47.0); Hemoglobin 10.7 g/dl (12.0-16.0); Lymphocytes Absolute Auto 0.9 X10*3/uL (1.2-4.9); Lymphocytes Percent Auto 22.9 % (20-40); Mean Corpuscular Hemoglobin 24.2 pg (27.0-33.0); Mean Corpuscular Volume 80.8 fL (80.0-98.0); Monocytes Percent Auto 10.7 % (2-11); Neutrophils Percent Auto 64.5 % (45-73); Platelet Count 277 X10*3/uL (160-400); Red Blood Count 4.42 X10*6/uL (4.20-5.50); Red Cell Distribution Width 24.7 % (11.0-16.0)
[2023-02-19 15:48] LABS: PLT ABN DIST 1
== END 2023-02-19 14:38 | disposition home or self-care (01) ==
LOC: HO.LAB 14:37
PROVIDERS: PCP Internal Medicine; Visit Provider Internal Medicine
DX: D50.8 Other iron deficiency anemias (principal)
CPT/HCPCS: 36415; 85025

== ENCOUNTER 2023-05-06 14:26 | Outpatient (REF) | payer MEDICARE, SELFPAY ==
[2023-05-06 14:45] LABS: MANUAL DIFF FLAG NO
[2023-05-06 15:01] LABS: Basophils Percent Auto 0.6 % (0-2); Eosinophils Percent Auto 0.2 % (0-4); Hematocrit 44.7 % (37.0-47.0); Hemoglobin 14.4 g/dl (12.0-16.0); Imm Gran Abs Auto 0.01 X10*3/uL (0.00-0.03); Imm Gran Pct Auto 0.2 % (0.0-0.4); Lymphocytes Absolute Auto 1.3 X10*3/uL (1.2-4.9); Lymphocytes Percent Auto 20.7 % (20-40); Mean Corpuscular HGB Conc 32.2 g/dl (31.0-35.0); Mean Corpuscular Hemoglobin 27.2 pg (27.0-33.0); Mean Corpuscular Volume 84.5 fL (80.0-98.0); Monocytes Absolute Auto 0.5 X10*3/uL (0.1-1.2); Monocytes Percent Auto 7.6 % (2-11); Neutrophils Absolute Auto 4.5 x10*3/uL (2.0-8.3); Neutrophils Percent Auto 70.7 % (45-73); Platelet Count 199 X10*3/uL (160-400); Red Blood Count 5.29 X10*6/uL (4.20-5.50); Red Cell Distribution Width 16.7 % (11.0-16.0); White Blood Count 6.3 X10*3/uL (4.8-10.8)
[2023-05-06 16:31] LABS: Alanine Aminotransferase 21 U/L (0-31); Albumin Level 3.7 g/dL (3.5-5.0); Alkaline Phosphatase 88 U/L (39-117); Anion Gap 15 (12-20); Aspartate Amino Transferase 29 U/L (5-31); Bilirubin Total 0.5 mg/dL (0.0-1.0); Blood Urea Nitrogen 19 mg/dL (9-16); Calcium 10.3 mg/dL (8.4-10.2); Carbon Dioxide 20 mmol/L (22-29); Chloride 106 mmol/L (96-108); Estimated Glomerular Filt Rate > 60; Glucose Random 88 mg/dL (60-115); Sodium 137 mmol/L (135-145); Total Protein 9.2 g/dL (6.5-8.0)
[2023-05-06 16:47] LABS: Ferritin 39 ng/mL (10-250)
== END 2023-05-06 14:27 | disposition home or self-care (01) ==
LOC: HO.LAB 14:26
PROVIDERS: PCP Internal Medicine; Visit Provider Internal Medicine
DX: D50.8 Other iron deficiency anemias (principal); N30.01 Acute cystitis with hematuria; R30.0 Dysuria
CPT/HCPCS: 36415; 80053; 82728; 85025; 87086; 87088; 87186

== ENCOUNTER 2023-05-12 10:30 | Outpatient (REF) | payer MEDICARE, SELFPAY ==
[2023-05-13 09:44] LABS: Appearance Urine Turbid; Color Urine Yellow; Glucose Urine UA Negative (Negative); Leukocyte Esterase Urine Large (3+) (Negative); Nitrite Urine Negative (Negative); PH 5.5 (5.0-9.0); UMIC TRIGGER UA YES; Urine Blood Trace (Negative); Urine Ketones Negative (Negative); Urine Protein Trace mg/dL (Neg-Trace)
[2023-05-13 09:47] LABS: Bacteria Urine None Seen (None Seen); Hyaline Casts Urine 0-2 /LPF (0-2); RBC Urine 0-2 /HPF (0-2); WBC Urine >50 /HPF (0-5)
== END 2023-05-12 10:31 | disposition home or self-care (01) ==
LOC: HO.LNP 10:30
PROVIDERS: Visit Provider Internal Medicine
DX: R30.0 Dysuria (principal); N30.01 Acute cystitis with hematuria; D50.8 Other iron deficiency anemias
CPT/HCPCS: 81001; 87086; 87088; 87186

== ENCOUNTER 2023-06-24 05:53 | Emergency (ER) | payer MEDICARE, SELFPAY ==
[2023-06-24] VITALS (7 sets, daily range): BP systolic 118–160; BP diastolic 68–90; PULSE 75–92; RESP 16–18; TEMP 36.4; O2SAT 94–98; BMI 32.2
--- NOTE | ~2023-06-24 | CT_ITS ---
EXAMINATION: CT HEAD WITHOUT CONTRAST CLINICAL INFORMATION: Fall COMPARISON: Previous head CT January 2023 TECHNIQUE: Contiguous axial imaging was performed from the skull base to vertex without intravenous administration of contrast. This CT examination was performed using dose optimization techniques as appropriate, variously including the following: *Automated exposure control *Adjustment of mA and/or kV according to patient size (this includes techniques or standardized protocols for targeted exams where dose is matched to indication/reason for exam; i.e. extremities or head) *Use of iterative reconstruction technique DLP: 951 mGy-cm FINDINGS: There is no evidence of an extra-axial collection. There is no evidence of intra-axial or extra-axial hemorrhage. The ventricles and extra-axial CSF spaces are prominent suggestive of mild generalized atrophy. There is nonspecific periventricular white matter disease. No mass, mass effect or infarct. No skull fracture. Soft tissue swelling over the left parietal bone. Visualized paranasal sinuses, mastoid air cells and middle ears are clear. CT/CT head/brain wo IV con IMPRESSION: No acute findings. Soft tissue swelling over the left parietal bone.
--- NOTE | ~2023-06-24 | XR_ITS ---
EXAMINATION: XR LUMBOSACRAL SPINE CLINICAL INFORMATION: Fall COMPARISON: None available. TECHNIQUE: Two views of the lumbosacral spine. FINDINGS: There is a severe old-appearing L1 vertebral body compression fracture. There is question of T10 vertebral body compression fracture on the AP view. No acute lumbar fracture. There is a 2 cm anterior subluxation of L5 with respect to S1. This may be related to a pars defect. Bone alignment is otherwise normal. There is a disc disease at L5-S1. There is lower lumbar spine facet arthritis. There is atherosclerotic disease. There is a large amount of stool in the colon questionable for constipation. XR/XR lumbar spine 2-3V IMPRESSION: Severe old-appearing L1 vertebral body compression fracture. Question T10 vertebral body compression fracture on the AP view. Severe L5-S1 degenerative disc disease and 2 cm anterior subluxation of L5 with respect to S1. This may be related to a pars defect. Lower lumbar spine facet arthritis.
--- NOTE | ~2023-06-24 | CT_ITS ---
EXAMINATION: CT CERVICAL SPINE WITHOUT CONTRAST CLINICAL INFORMATION: Fall COMPARISON: Previous cervical spine CT January 2023 TECHNIQUE: Axial images through the cervical spine without contrast. Sagittal and coronal reconstructions on the technologist workstation were performed. This CT examination was performed using dose optimization techniques as appropriate, variously including the following: *Automated exposure control *Adjustment of mA and/or kV according to patient size (this includes techniques or standardized protocols for targeted exams where dose is matched to indication/reason for exam; i.e. extremities or head) *Use of iterative reconstruction technique DLP: 330 mGy-cm FINDINGS: There is mild 2 mm anterior subluxation of C3 with respect to C4. This is similar to previous exam. Bone alignment is otherwise normal. There is question of a small fracture of the medial left occipital condyle coronal reconstructed image 20 series 15. This does not appear acute and similar in alignment to January 2023 exam. No acute fracture or dislocation. Degenerative spondylosis and degenerative disc disease at C2-C3 and C3-C6 and C7-T1. Degenerative changes at the C1 dens articulation. Bilateral facet arthritis greatest at C3-C4. Prevertebral soft tissues are normal. Bilateral carotid calcification. 5 mm nodule at the right lung apex. This is similar in size to January 2023 exam. On January 2023 exam this was partially calcified. There is biapical pleural thickening that is similar to previous exam. CT/CT cervical spine wo IV con IMPRESSION: No acute fracture or dislocation. Question old avulsion fracture of the medial left occipital condyle similar in alignment to January 2023. Multilevel degenerative changes. Stable pulmonary findings. According to the UPDATED 2017 Fleischner Society recommendations, the advised follow-up imaging for less than 6 mm solid nodule: Low risk, no chest CT follow-up and high risk, optional chest CT follow-up in one year recommended. If findings are stable, no additional follow-up would be recommended at that time. Fleischner guidelines were followed.
--- NOTE | 2023-06-24 06:28 | PC.NURSE ---
Pt biba from home after fall. PT cannot recall events, but was found on the ground by EMS. PT endorsed neck and lower back pain intially but upon arrival to ED states she is no longer in pain. Unknown head strike or LOC. Pt Altered but reportedly has a hx of dementia. PT in c-collar, VSS, scans ordered, patient belongings placed in bag at bedside. Call wright within reach.
--- NOTE | 2023-06-24 07:00 | ED.GENADULT ---
HPI - General Adult General Chief complaint: Fall Stated complaint: fall Time Seen by Provider: 06/24/23 06:48 Source: patient Mode of arrival: EMS Limitations: no limitations History of Present Illness HPI narrative: Patient is a 78 year old female History of acute blood loss anemia secondary to GI bleed, Parkinson's disease, hypoparathyroidism, hypertension, GERD presenting after falling at home this morning. Patient and family report that she fell at approximately 4:30 this morning. Patient cannot recall precipitating symptoms prior to the fall but patient was conscious and was able to press her life alert bracelet after the fall. Unknown if there as headstrike or loss of consciousness. She thinks she hit her head. Not on blood thinners. Unable to tell me how she fell. Patient complaining of neck and back pain. Denies fevers, chills, shortness of breath, chest pain, nausea or vomiting. no loss of control of urine, stool. no saddle paresthesias. Arrives in cervical collar. Patient GCS-15 NIHSS- 0 Related Data Home Medications Medication Instructions Recorded Confirmed carbidopa 25 mg-levodopa 100 mg 1 tab PO TID 02/05/23 02/05/23 tablet cyanocobalamin (vitamin B-12) 1,000 mcg PO DAILY 02/05/23 02/05/23 1,000 mcg tablet ferrous gluconate 324 mg (38 mg 324 mg PO DAILY 02/05/23 02/05/23 iron) tablet ibuprofen 600 mg tablet 600 mg PO TID PRN Pain 02/05/23 02/05/23 immune glob,gamm(IgG) 10%-sorb-IgA 1,200 ml IV Q3W 02/05/23 02/05/23 0 to 50 mcg/mL intravenous solution levothyroxine 175 mcg capsule 175 mcg PO DAILY 02/05/23 02/05/23 lisinopril 10 mg tablet 10 mg PO DAILY 02/05/23 02/05/23 mycophenolate mofetil 250 mg 500 mg PO BID 02/05/23 02/05/23 capsule omeprazole 20 mg capsule,delayed 20 mg PO DAILY@1630 02/05/23 02/05/23 release zolpidem 5 mg tablet 5 mg PO BEDTIME PRN Insomnia 02/05/23 02/05/23 Previous Rx's Medication Instructions Recorded acetaminophen 325 mg tablet 650 mg PO Q6H PRN pain #20 tabs 06/24/23 (Tylenol) lidocaine 5 % topical patch 1 patch topical DAILY PRN pain #15 06/24/23 ea Allergies Allergy/AdvReac Type Severity Reaction Status Date / Time Sulfa (Sulfonamide Allergy Vomiting Verified 02/05/23 15:25 Antibiotics) Review of Systems Review of Systems: Constitutional : No Weight loss, No Fever, No Chills, + Fatigue and Malaise ENT/Mouth : No sore throat, No Rhinorrhea Eyes: No Eye Pain, No Swelling, No Redness Cardiovascular : No Chest Pain, No SOB, No Dyspnea on Exertion, No Orthopnea, No Edema, No Palpitations Respiratory : No Cough, No Sputum, No Wheezing Gastrointestinal : No Nausea, No Vomiting, No Diarrhea, No Constipation, No abdominal Pain, No Hematochezia, No Melena Genitourinary : No Dysuria, No Urinary Frequency, No Hematuria, Musculoskeletal : No joint pain, No Myalgias, No Joint Swelling Skin : No Skin Lesions, No rash Neuro : No Weakness, No Numbness, No Dizziness, No Headache Psych : No Anxiety/Panic, No Depression All other systems reviewed and are negative Yes all other systems are reviewed and are negative [facility] Past Medical History Attestation statement: The following information was validated with the patient. Source: old records reviewed and nursing notes reviewed Social History Social History Alcohol intake: never Smoked in Last 30 Days: No Use of substances other than those prescribed or required for medical reasons: No Advance Directives: No Advance Directives Information Provided: No Physical Exam ED Vital Signs: Vital Signs - 24 hr 06/24/23 06:03 06/24/23 06:08 06/24/23 06:08 Temperature 97.5 F 97.5 F 97.5 F Pulse Rate 78 85 78 Respiratory Rate 18 18 18 Blood Pressure 143/68 H 143/68 H 143/68 H Pulse Oximetry 94 96 98 Oxygen Delivery Method Room Air Room Air 06/24/23 07:07 06/24/23 10:16 06/24/23 12:09 Temperature 97.6 F 97.6 F Pulse Rate 79 81 75 Respiratory Rate 16 16 16 Blood Pressure 155/75 H 147/89 H 118/74 Pulse Oximetry 95 96 98 Oxygen Delivery Method Room Air Room Air Room Air 06/24/23 14:57 Temperature 97.6 F Pulse Rate 86 Respiratory Rate 16 Blood Pressure 153/82 H Pulse Oximetry 96 Oxygen Delivery Method Room Air BMI result Body Mass Index 32.2 VSS Appearance: Alert.? Oriented X3.? No acute distress.? Head: Normocephalic, + 3x3cm hematoma to the left parietal lobe Eyes: Pupils equal, round and reactive to light.? CVS: Normal heart rate and rhythm.? Pulses normal.? Respiratory: No respiratory distress.? Breath sounds normal.? Abdomen: Soft and nontender.? Skin: Skin warm and dry.? Normal skin color.? Normal skin turgor.? Extremities: No lower extremity edema.? No calf ttp. Global weakness but no focal neuro deficits Back: + midline tenderness from end of thoracic spine to L4. , no C-spine tenderness, full range of motion, no CVA tenderness bilaterally Neuro: Oriented X 3.? No motor deficit.? No sensory deficit. CN 2-12 intact. Corrdination intact including finger to nose, handgrip, arm raise. NIH stroke scale O Course Reevaluation(s) Reevaluation #1: CBC appears to be around patient's baseline, no acute findings. Chemistry with slightly low sodium 133, giving IV fluids, troponin 22.6, will repeat a 3 hour louie, EKG nonischemic. UA without infection. initial CT read red possible hemorrhagic contusions but probably artifact temporal lobes, and question old jerod infarct however when the official read came in it read a normal head CT, no acute findings. Patient's neuro nonfocal, cerebellar intact low suspicion for stroke at this time. This is likely a trip and fall secondary to Parkinson's. CT of the cervical spine with no fractures, traumatic subluxations. Will repeat a 2nd troponin. Spoke to hospitalist who do not feel as though there is a need for admission Time: 12:20 Reevaluation #2: Neurology evaluated the patient who states that there is no reason for patient to be admitted, evaluated patient at the bedside and feels comfortable with patient going home with outpatient neurology follow-up. Educated family on signs and symptoms of post concussive syndrome and when to return to the emergency department. Second troponin pending patient to be discharged home as long as troponin does not meet delta criteria. Patient admits to taking ativan x 2 unknown dose and a sleeping pill late last night. Sevre old appering L1 vertebral compression fx and ? T 10 fx patient diffusely tender to spine. Time: 12:42 Reevaluation #3: I did have a conversation with patient's daughter who lives in [place], she is not the power of attorney lawyer she voices concerns because earlier when she spoke to her mother, she seem to be confused, speaking about things that did not make sense, this was earlier this morning, she reports that Mom is not alert oriented at that time and she tells me that her mother is currently confused. I explained to her that upon my examination she is alert and oriented times or, I discussed this case with hospitalist who initially told me this did not meet criteria for hospital admission, patient was also evaluated in depth by Neurology Dr. Garcia at the bedside he does not feel as though there is medical necessity for inpatient hospitalization. I explained to daughter that offered patient physical therapy and case management since patient did fall and could likely benefit from increased services at home however patient is refusing, daughter is adamant that ID patient I explained to her daughter I would try to convince mother to stay for her own well-being however ultimately it is up to the patient as she is alert and oriented x4 and able to make her own decisions. Daughter is upset about this. She tells me that there is something wrong with her mother and she does not us to discharge her mother home. Explained to her 2nd troponin is pending if this is positive then patient would be staying in the hospital however no reason to keep her neurologically. Her lab work is unremarkable, her urine is clean, CT head and neck no acute findings. Patient does have a superficial hematoma in symptoms could be secondary to closed head injury/ concussion. I also explained to patient's daughter that patient admitted to me prior to daughter calling that last night she took 2 lorazepam switch she had at home and she also took a sleeping pill, I explained to her that I looked at patient's meds and I realized that patient is on zolpidem 5 mg p.o. at bedtime I explained to her that this medication can cause some altered mental status particularly in conjunction with Ativan particularly in somebody this age. Time: 14:55 Additional Reevaluation(s): 1505 I did have a conversation with patient and I explained to her her daughter's concerns, her neurological assessment remains intact. No headaches, vision changes, dizziness, weakness. No chest pain, shortness of breath. Patient tells me she feels fine and she says last time she took Ativan she had this same issue and she did have a hallucinations. I offered her hospital admission for observation, patient refusing. I offered physical therapy and case management patient refusing. Patient would like to go home. Patient was told she could go home by Neurology and patient states that is what she would like to do. Medications Administered Discontinued Medications Generic Name Dose Route Start Last Admin Trade Name Zenon PRN Reason Stop Dose Admin Sodium Chloride 1,000 mls @ 999 mls/hr 06/24/23 08:15 06/24/23 11:59 Ns IV 06/24/23 09:15 Infused .Q1H1M MARTHA Infusion Medical Decision Making Medical Decision Making [facility] Narrative: 7:08 78 year old female presenting after a fall this morning. Patient cannot recall events leading up to the fall. Exam midline tenderness from end of thoracic spine to L4.. Cerebellar function intact. NIH stroke scale 0. This is likely a mechanical fall. Unlikely intracranial hemorrhage, stroke, posterior stroke but will CT to rule out. Less likely syncope or seizure. Unlikely ACS, PE based on the histoyr and physical but will order trop and EKG to rule out. Unlikely metabolic abnormalities or electrolyte derrangements but will get labs to rule out. no signs of cauda equina or epidural abscess or cord compression. Will rule out compression fractures of spine. Will rule out UTI. Breath sounds clear, unlikely flail chest, pneumothorax. Unlikely traumatic injury to chest, abdomen or pelvis no tenderness to palpation or distracting injuries or bruising. Plan: labs, imaging, urine Differential Diagnosis Differential Diagnoses: The differential diagnosis associated with the presentation includes This is likely a mechanical fall. Unlikely intracranial hemorrhage, stroke, posterior stroke but will CT to rule out. Less likely syncope or seizure. Unlikely ACS, PE based on the histoyr and physical but will order trop and EKG to rule out. Unlikely metabolic abnormalities or electrolyte derrangements but will get labs to rule out. no signs of cauda equina or epidural abscess or cord compression. Will rule out compression fractures of spine.Will rule out UTI. Breath sounds clear, unlikely flail chest, pneumothorax. Unlikely traumatic injury to chest, abdomen or pelvis no tenderness to palpation or distracting injuries or bruising. Admission/Observation Consideration of admission/observation: Escalation of care including admission/observation considered Unlikely Consult Healthcare Provider Management of the patient was discussed with: Hospitalist ( do not feel as though there is a need for medical admission) and Signal Intelligence Analyst ( Dr. Garcia ( evaluated patient at bedside) states patient should be DC home w/ neuro follow up. ) Lab Data MDM Lab Attestation statement: I reviewed the patient's lab results. 06/24/23 07:35 Labs: Lab Results 06/24/23 06/24/23 06/24/23 Range/Units 07:10 07:10 07:35 WBC (4.8-10.8) X10*3/uL RBC (4.20-5.50) X10*6/uL Hgb (12.0-16.0) g/dl Hct (37.0-47.0) % MCV (80.0-98.0) fL MCH (27.0-33.0) pg MCHC (31.0-35.0) g/dl RDW (11.0-16.0) % Plt Count (160-400) X10*3/uL MPV (9.4-12.3) fL Immature Gran % (Auto) (0.0-0.4) % Neut % (Auto) (45-73) % Lymph % (Auto) (20-40) % Morrison % (Auto) (2-11) % Eos % (Auto) (0-4) % Baso % (Auto) (0-2) % Lymph # (Auto) (1.2-4.9) X10*3/uL Morrison # (Auto) (0.1-1.2) X10*3/uL Eos # (Auto) (0.0-0.4) X10*3/uL Baso # (Auto) (0.0-0.2) X10*3/uL Abs Immat Gran (auto) (0.00-0.03) X10*3/uL Absolute Neuts (auto) (2.0-8.3) x10*3/uL Absolute Nucleated RBC (0.0-0.012) X10*3/uL Nucleated RBC % (auto) (0.0-0.2) /100WBC Sodium 133 L (135-145) mmol/L Potassium 3.8 (3.3-5.1) mmol/L Chloride 105 (96-108) mmol/L Carbon Dioxide 24 (22-29) mmol/L Anion Gap 8 L (12-20) BUN 16 (9-16) mg/dL Creatinine 0.80 (0.5-1.4) mg/dL Estim Creat Clear Calc 51.4 Estimated GFR > 60 Random Glucose 90 (60-115) mg/dL Calcium 9.1 D (8.4-10.2) mg/dL Magnesium 1.7 (1.6-2.6) mg/dL Total Bilirubin 0.4 (0.0-1.0) mg/dL AST 23 (5-31) U/L ALT 20 (0-31) U/L Alkaline Phosphatase 67 (39-117) U/L Total Creatine Kinase 42 (26-140) U/L Troponin I High Sens (<3.5-17.0) ng/L Total Protein 10.0 H (6.5-8.0) g/dL Albumin 3.1 L (3.5-5.0) g/dL Urine Color Yellow Urine Appearance Clear Urine pH 5.5 (5.0-9.0) Ur Specific [place] 1.010 (1.005-1.025) Urine Protein Negative (Neg-Trace) mg/dL Urine Glucose (UA) Negative (Negative) mg/dL Urine Ketones Negative (Negative) mg/dL Urine Blood Negative (Negative) Urine Nitrite Negative (Negative) Ur Leukocyte Esterase Negative (Negative) Urine Opiates Screen Not Detected (Not Detect) Urine Fentanyl Screen Not Detected (Not Detect) Ur Barbiturates Screen Not Detected (Not Detect) Ur Phencyclidine Scrn Not Detected (Not Detect) Ur Amphetamines Screen Not Detected (Not Detect) U Benzodiazepines Scrn Not Detected (Not Detect) Urine Cocaine Screen Not Detected (Not Detect) U Marijuana (THC) Screen Not Detected (Not Detect) 06/24/23 06/24/23 06/24/23 Range/Units 07:35 08:30 14:13 WBC 5.5 (4.8-10.8) X10*3/uL RBC 4.09 L D (4.20-5.50) X10*6/uL Hgb 11.6 L (12.0-16.0) g/dl Hct 35.7 L D (37.0-47.0) % MCV 87.3 (80.0-98.0) fL MCH 28.4 (27.0-33.0) pg MCHC 32.5 (31.0-35.0) g/dl RDW 15.9 (11.0-16.0) % Plt Count 156 L (160-400) X10*3/uL MPV 10.5 (9.4-12.3) fL Immature Gran % (Auto) 0.4 (0.0-0.4) % Neut % (Auto) 76.6 H (45-73) % Lymph % (Auto) 14.5 L (20-40) % Morrison % (Auto) 7.5 (2-11) % Eos % (Auto) 0.4 (0-4) % Baso % (Auto) 0.6 (0-2) % Lymph # (Auto) 0.8 L (1.2-4.9) X10*3/uL Morrison # (Auto) 0.4 (0.1-1.2) X10*3/uL Eos # (Auto) 0.0 (0.0-0.4) X10*3/uL Baso # (Auto) 0.0 (0.0-0.2) X10*3/uL Abs Immat Gran (auto) 0.02 (0.00-0.03) X10*3/uL Absolute Neuts (auto) 4.2 (2.0-8.3) x10*3/uL Absolute Nucleated RBC 0.000 (0.0-0.012) X10*3/uL Nucleated RBC % (auto) 0.0 (0.0-0.2) /100WBC Sodium (135-145) mmol/L Potassium (3.3-5.1) mmol/L Chloride (96-108) mmol/L Carbon Dioxide (22-29) mmol/L Anion Gap (12-20) BUN (9-16) mg/dL Creatinine (0.5-1.4) mg/dL Estim Creat Clear Calc Estimated GFR Random Glucose (60-115) mg/dL Calcium (8.4-10.2) mg/dL Magnesium (1.6-2.6) mg/dL Total Bilirubin (0.0-1.0) mg/dL AST (5-31) U/L ALT (0-31) U/L Alkaline Phosphatase (39-117) U/L Total Creatine Kinase (26-140) U/L Troponin I High Sens 22.6 H 24.0 H (<3.5-17.0) ng/L Total Protein (6.5-8.0) g/dL Albumin (3.5-5.0) g/dL Urine Color Urine Appearance Urine pH (5.0-9.0) Ur Specific [place] (1.005-1.025) Urine Protein (Neg-Trace) mg/dL Urine Glucose (UA) (Negative) mg/dL Urine Ketones (Negative) mg/dL Urine Blood (Negative) Urine Nitrite (Negative) Ur Leukocyte Esterase (Negative) Urine Opiates Screen (Not Detect) Urine Fentanyl Screen (Not Detect) Ur Barbiturates Screen (Not Detect) Ur Phencyclidine Scrn (Not Detect) Ur Amphetamines Screen (Not Detect) U Benzodiazepines Scrn (Not Detect) Urine Cocaine Screen (Not Detect) U Marijuana (THC) Screen (Not Detect) Independent Interpretation I performed an independent interpretation of an: EKG ( Ventricular rate 80, pr normal, QRS normal, QT / QTC normal. No signs of ischemia at this time. ) and CT Scan Radiology Impression Discussion of test interpretation with radiology: I have reviewed the radiologist's reading. External Record Review External record reviewed: Inpatient record, Office record, Outpatient record, Prior outpatient labs, Prior outpatient radiology, Primary care record and Outside ED record Tests considered The following testing was considered but not selected: Considered CT of chest, abdomen and pelvis however no tenderness to palpation or evidence of trauma. No focal neuro deficits no need for CTA or MRI. Core Measures AMI core measures followed: Yes Measure exclusions: not indicated Critical Care Time Critical Care Time Critical Care Time: Yes Total Critical Care Time: 45 Attestation: I attest to this time spent taking care of the patient, obtaining history, physical, reviewing labs, imaging, speaking to my attending, speaking to specialist. Discharge Plan Discharge Clinical Impression: Fall, Scalp hematoma, Concussion, Vertebral compression fracture, Pulmonary nodule Patient Disposition: Home, Self-Care Instructions: Fall Prevention for Older Adults (ED), Contusion in Adults (ED), Post Concussion Syndrome (ED), Scalp Contusion in Adults (ED), Pulmonary Nodules (ED), Fall Prevention (ED) Additional Instructions: Take your medications as prescribed. If you were prescribed antibiotics today, it is important that you take your medication to their entirety, do not skip any doses, do not finish them early. Follow-up with your primary care provider this week. Please follow-up with neurology within the next week. And follow-up with [facility]. Return to the emergency department with new or worsening symptoms. Such as fevers, chills, chest pain, shortness of breath, nausea, vomiting, dizziness, headache, vision changes, lethargy In case of emergency call 911 Please use caution with medications such as lorazepam and zolpidem take Tylenol as prescribed for pain or discomfort. ?CT/CT head/brain wo IV con IMPRESSION: No acute findings. Soft tissue swelling over the left parietal bone. ?CT/CT cervical spine wo IV con IMPRESSION: No acute fracture or dislocation. Question old avulsion fracture of the medial left occipital condyle similar in alignment to January 2023. Multilevel degenerative changes. Stable pulmonary findings. According to the UPDATED 2017 Fleischner Society recommendations, the advised follow-up imaging for less than 6 mm solid nodule: Low risk, no chest CT follow-up and high risk, optional chest CT follow-up in one year recommended. If findings are stable, no additional follow-up would be recommended at that time. XR/XR lumbar spine 2-3V IMPRESSION: Severe old-appearing L1 vertebral body compression fracture. Question T10 vertebral body compression fracture on the AP view. Severe L5-S1 degenerative disc disease and 2 cm anterior subluxation of L5 with respect to S1. This may be related to a pars defect. Lower lumbar spine facet arthritis. Prescriptions: New lidocaine 5 % adhesive patch,medicated 1 patch topical DAILY PRN (Reason: pain) Qty: 15 0RF Rx Instructions: leave on most painful area for up to 12 hrs acetaminophen [Tylenol] 325 mg tablet 650 mg PO Q6H PRN (Reason: pain) Qty: 20 0RF No Action mycophenolate mofetil 250 mg capsule 500 mg PO BID cyanocobalamin (vitamin B-12) 1,000 mcg Tablet 1,000 mcg PO DAILY lisinopril 10 mg tablet 10 mg PO DAILY omeprazole 20 mg capsule,delayed release(DR/EC) 20 mg PO DAILY@1630 zolpidem 5 mg tablet 5 mg PO BEDTIME PRN (Reason: Insomnia) ibuprofen 600 mg tablet 600 mg PO TID PRN (Reason: Pain) carbidopa-levodopa 25-100 mg tablet 1 tab PO TID ferrous gluconate 324 mg (38 mg iron) tablet 324 mg PO DAILY imm glob G (IgG)-sorb-IgA 0-50 10 % Solution 1,200 ml IV Q3W levothyroxine 175 mcg capsule 175 mcg PO DAILY Referrals: Franny Guaman MD [Primary Care Provider] - 2 days Tari Dowling MD [Physician] - 2 days [facility] [Provider Group] - 1 week Stand Alone Forms: Work/School Release
--- NOTE | 2023-06-24 07:06 | ECG_ITS ---
Test Reason : fall Blood Pressure : / mmHG Vent. Rate : 080 BPM Atrial Rate : 080 BPM P-R Int : 186 ms QRS Dur : 080 ms QT Int : 360 ms P-R-T Axes : 035 039 045 degrees QTc Int : 415 ms Normal sinus rhythm Nonspecific T wave abnormality Abnormal ECG When compared with ECG of 05-FEB-2023 15:35, Nonspecific T wave abnormality, improved in Lateral leads QT has shortened Referred By: Dunia Horowitz Electronically Signed By:SVITLANA PELAYO
--- NOTE | 2023-06-24 07:08 | PC.NURSE ---
pt a&ox3, vss, pt verblaizing no pain tiffani. pt denies n/v/SOB or any other sx. urine sample obtained from bed hebert - will send down to lab. pt's family bedside for support. call wright placed within reach.
[2023-06-24 07:56] LABS: Alanine Aminotransferase 20 U/L (0-31); Albumin Level 3.1 g/dL (3.5-5.0); Alkaline Phosphatase 67 U/L (39-117); Anion Gap 8 (12-20); Aspartate Amino Transferase 23 U/L (5-31); Bilirubin Total 0.4 mg/dL (0.0-1.0); Blood Urea Nitrogen 16 mg/dL (9-16); Calcium 9.1 mg/dL (8.4-10.2); Carbon Dioxide 24 mmol/L (22-29); Chloride 105 mmol/L (96-108); Creatinine Clr Calc Pharmacy 51.4; Estimated Glomerular Filt Rate > 60; Glucose Random 90 mg/dL (60-115); Magnesium 1.7 mg/dL (1.6-2.6); Potassium 3.8 mmol/L (3.3-5.1); Sodium 133 mmol/L (135-145)
[2023-06-24 07:57] LABS: Appearance Urine Clear; Color Urine Yellow; Glucose Urine UA Negative (Negative); Leukocyte Esterase Urine Negative (Negative); Nitrite Urine Negative (Negative); PH 5.5 (5.0-9.0); Urine Blood Negative (Negative); Urine Ketones Negative (Negative); Urine Protein Negative (Neg-Trace)
[2023-06-24 08:03] LABS: Troponin-I High Sensitivity 22.6 ng/L (<3.5-17.0)
[2023-06-24 08:35] LABS: Basophils Percent Auto 0.6 % (0-2); Eosinophils Percent Auto 0.4 % (0-4); Hematocrit 35.7 % (37.0-47.0); Hemoglobin 11.6 g/dl (12.0-16.0); Imm Gran Abs Auto 0.02 X10*3/uL (0.00-0.03); Imm Gran Pct Auto 0.4 % (0.0-0.4); Lymphocytes Absolute Auto 0.8 X10*3/uL (1.2-4.9); Lymphocytes Percent Auto 14.5 % (20-40); Mean Corpuscular HGB Conc 32.5 g/dl (31.0-35.0); Mean Corpuscular Hemoglobin 28.4 pg (27.0-33.0); Mean Corpuscular Volume 87.3 fL (80.0-98.0); Mean Platelet Volume 10.5 fL (9.4-12.3); Monocytes Absolute Auto 0.4 X10*3/uL (0.1-1.2); Monocytes Percent Auto 7.5 % (2-11); Neutrophils Absolute Auto 4.2 x10*3/uL (2.0-8.3); Neutrophils Percent Auto 76.6 % (45-73); Platelet Count 156 X10*3/uL (160-400); Red Blood Count 4.09 X10*6/uL (4.20-5.50); Red Cell Distribution Width 15.9 % (11.0-16.0); White Blood Count 5.5 X10*3/uL (4.8-10.8)
[2023-06-24 08:40] LABS: MANUAL DIFF FLAG NO
[2023-06-24] MEDS: 0.9 % Sodium Chloride 1,000 ML 999 ML IV (09:44)
--- NOTE | 2023-06-24 09:52 | PC.NURSE ---
PT IS A/O X 4. NEUROS - WNL. NO SOB/JESSEE NOTED SPEAKS IN FULL SENTENCES. PT IS CHEERFUL/PLEASANT. FAMILY MEMBERS AT BEDSIDE. C-COLLAR D/C'D BY . #22 IV TO L FOREARM.
--- NOTE | 2023-06-24 09:56 | MHC.EDTECH ---
Complete bed change done. Pt washed and cleaned. Pt repositioned, head of bed elevated. RN aware.
--- NOTE | 2023-06-24 10:21 | MHC.EDTECH ---
Put pt on bed hebert and took pt off.
--- NOTE | 2023-06-24 13:09 | PC.NURSE ---
pt's daughter randall chavez ([place], ) called and was updated on pt status.
--- NOTE | 2023-06-24 13:12 | P.CNNE_ITS ---
History of Present Illness Data of Consult Service Date: 06/24/23 Primary Care Provider: Franny Guaman MD [facility] Reason for consult: Concussion 78 years old woman with underlying history of Parkinson's disease usually was seen Dr. Gibbons in [place] had a mechanical fall when she hit her head on heart object. There was no seizure or loss of consciousness. Now she was okay except that she was having mild hallucination. Daughter stated that this is not happened before. Patient stated that this was just because she was in hospital and she was not real sick. She was not in any distress. Review of Systems Review of Systems: No previous losing lesions or delusion PMFSH Social History Social History Alcohol intake: never Smoked in Last 30 Days: No Use of substances other than those prescribed or required for medical reasons: No Advance Directives: No Advance Directives Information Provided: No Meds Allergies Allergy/AdvReac Type Severity Reaction Status Date / Time Sulfa (Sulfonamide Allergy Vomiting Verified 02/05/23 15:25 Antibiotics) Home Medications Medication Instructions Recorded Confirmed Last Taken Type carbidopa 25 mg-levodopa 100 mg 1 tab PO TID 02/05/23 02/05/23 02/05/23 History tablet cyanocobalamin (vitamin B-12) 1,000 mcg PO DAILY 02/05/23 02/05/23 02/05/23 History 1,000 mcg tablet ferrous gluconate 324 mg (38 mg 324 mg PO DAILY 02/05/23 02/05/23 02/05/23 History iron) tablet ibuprofen 600 mg tablet 600 mg PO TID PRN Pain 02/05/23 02/05/23 Unknown History immune glob,gamm(IgG) 10%-sorb-IgA 1,200 ml IV Q3W 02/05/23 02/05/23 01/26/23 History 0 to 50 mcg/mL intravenous solution levothyroxine 175 mcg capsule 175 mcg PO DAILY 02/05/23 02/05/23 02/05/23 History lisinopril 10 mg tablet 10 mg PO DAILY 02/05/23 02/05/23 02/05/23 History mycophenolate mofetil 250 mg 500 mg PO BID 02/05/23 02/05/23 02/05/23 History capsule omeprazole 20 mg capsule,delayed 20 mg PO DAILY@1630 02/05/23 02/05/23 02/04/23 History release zolpidem 5 mg tablet 5 mg PO BEDTIME PRN Insomnia 02/05/23 02/05/23 Unknown History Physical Exam Vital Signs: Vital Signs: Last Vital Signs Temp 97.6 F 06/24/23 12:09 Pulse 75 06/24/23 12:09 Resp 16 06/24/23 12:09 BP 118/74 06/24/23 12:09 Pulse Ox 98 06/24/23 12:09 O2 Del Method Room Air 06/24/23 12:09 BMI result Body Mass Index 32.2 Neuro: Other: Alert and awake with normal spontaneity of speech fluency comprehension and affect. She has moderate parkinsonism somewhat more so on left side and right per with cogwheeling rigidity and tremor. Neck is supple. There is no obvious swelling or tenderness on her scalp. Results Labs 06/24/23 08:30 06/24/23 07:35 Labs: Short CBC 06/24/23 Range/Units 08:30 WBC 5.5 (4.8-10.8) X10*3/uL Hgb 11.6 L (12.0-16.0) g/dl Hct 35.7 L D (37.0-47.0) % Plt Count 156 L (160-400) X10*3/uL BMP 06/24/23 07:35 Sodium 133 L Potassium 3.8 Chloride 105 Carbon Dioxide 24 BUN 16 Creatinine 0.80 Calcium 9.1 D Cardiac Enzymes 06/24/23 Range/Units 07:35 Total Creatine Kinase 42 (26-140) U/L Liver Function 06/24/23 Range/Units 07:35 Total Bilirubin 0.4 (0.0-1.0) mg/dL AST 23 (5-31) U/L ALT 20 (0-31) U/L Alkaline Phosphatase 67 (39-117) U/L Albumin 3.1 L (3.5-5.0) g/dL Urine 06/24/23 Range/Units 07:10 Urine Color Yellow Urine Appearance Clear Urine pH 5.5 (5.0-9.0) Ur Specific [place] 1.010 (1.005-1.025) Urine Protein Negative (Neg-Trace) mg/dL Urine Glucose (UA) Negative (Negative) mg/dL Head CT did not reveal any acute abnormality. It revealed mild generalized atrophy and mild chronic microvascular ischemic disease per Assessment and Plan (1) Concussion: Status: Acute 78 years old woman with underlying Parkinson's disease and associated problem with balance and walking had a mechanical fall resulting in mild head injury in mild concussion. She had her daughter were educated. As far as her neurological status was concerned, there was no particular reason for admission at this time. She could follow-up with her primary neurologist Time Spent With Patient Time: Total time managing care of this patient today ____ minutes. Procedures Date of Service Date of Service: 06/24/23
[2023-06-24 15:11] LABS: Amphetamine Screen Urine Not Detected (Not Detect); Barbiturates, Urine Not Detected (Not Detect); Benzodiazepines Screen Urine Not Detected (Not Detect); Cannabinoid Screen Urine Not Detected (Not Detect); Cocaine Screen Urine Not Detected (Not Detect); Fentanyl, urine Not Detected (Not Detect); Opiate Screen Urine Not Detected (Not Detect); Phencyclidine Screen Urine Not Detected (Not Detect)
[2023-06-24] MEDS: Acetaminophen 325 MG TABLET 650 MG PO (15:57)
[2023-06-24] MEDS: Lidocaine 4 % Patch ADH..PATCH 1 PATCH TRANSDERMA (15:58)
== END 2023-06-24 16:15 | disposition home or self-care (01) ==
PROVIDERS: Physician Assistant; Emergency Provider Student in an Organized Health Care Education/Training Program; PCP Internal Medicine
DX: S00.03XA Contusion of scalp, initial encounter (principal); W19.XXXA Unspecified fall, initial encounter; M48.52XA Collapsed vertebra, not elsewhere classified, cervical region, initial encounter for fracture; R91.1 Solitary pulmonary nodule; M54.2 Cervicalgia; G20 Parkinson's disease; Y93.9 Activity, unspecified; Y92.019 Unspecified place in single-family (private) house as the place of occurrence of the external cause; Y99.9 Unspecified external cause status; Z79.899 Other long term (current) drug therapy
CPT/HCPCS: 36415; 70450; 72100; 72125; 80053; 80307; 81003; 82550; 83735; 84484; 85025; 93005; 96360; 96361; 99285

== ENCOUNTER 2023-11-02 18:20 | Emergency (ER) | payer MEDICARE, SELFPAY ==
--- NOTE | ~2023-11-02 | CT_ITS ---
EXAMINATION: CT HEAD WITHOUT CONTRAST CLINICAL INFORMATION: Altered mental status. COMPARISON: 06/24/2023 TECHNIQUE: Multidetector volumetric imaging of the head was performed without intravenous contrast material. This CT examination was performed using dose optimization techniques as appropriate, variously including the following: *Automated exposure control *Adjustment of mA and/or kV according to patient size (this includes techniques or standardized protocols for targeted exams where dose is matched to indication/reason for exam; i.e. extremities or head) *Use of iterative reconstruction technique Dose: 593 mGy-cm FINDINGS: There is no evidence of acute intracranial hemorrhage or territorial infarction. No abnormal mass-effect or midline shift is seen. [place] to white matter differentiation is well preserved. No extra axial fluid collections. There is commensurate enlargement of the ventricles and extraaxial CSF spaces consistent with mild volume loss. A few foci of hypoattenuation in the subcortical and periventricular white matter are most consistent with chronic microangiopathic changes. Calcific atherosclerosis is present within the cavernous segments of the internal carotid arteries. The soft tissues and osseous structures are normal. The sinuses and mastoid air cells are clear. CT/CT head/brain wo IV con IMPRESSION: No acute intracranial pathology.
--- NOTE | 2023-11-02 18:30 | ED.AMS ---
HPI - Altered Mental Status General Chief Complaint: General Medical Stated Complaint: CONFUSION/WEAKNESS Time Seen by Provider: 11/02/23 18:29 Source: patient Mode of arrival: EMS Limitations: no limitations History of Present Illness HPI narrative: Patient is 78 years old with history of Parkinson disease comes here else for last 4 days family noticed that she is more confused and weak. No change in medications recent no fever no chills no cough no headache no chest pain or abdominal pain patient lives alone with some help at home and her son visits her almost every day patient walks with r walker but lately not even able to stand of her own at low-grade fever 3 days ago with chills no urinary symptoms no cough no chest pain no abdominal pain no nausea no vomiting just patient feels tired per family patient was having slurred speech 3 days ago and had difficulty in using her cell phone on arrival speech was normal prior to this patient according to family was alert oriented and taking care of herself patient was seen for similar reasons in 06/17 with negative w/u and seen by neurologist also Related Data Home Medications Medication Instructions Recorded Confirmed carbidopa 25 mg-levodopa 100 mg 1 tab PO TID 02/05/23 11/03/23 tablet cyanocobalamin (vitamin B-12) 1,000 mcg PO DAILY 02/05/23 11/03/23 1,000 mcg tablet ferrous gluconate 324 mg (38 mg 324 mg PO DAILY 02/05/23 11/03/23 iron) tablet ibuprofen 600 mg tablet 600 mg PO TID PRN Pain 02/05/23 11/03/23 levothyroxine 175 mcg capsule 175 mcg PO DAILY 02/05/23 11/03/23 lisinopril 10 mg tablet 10 mg PO DAILY 02/05/23 11/03/23 mycophenolate mofetil 250 mg 500 mg PO BID 02/05/23 11/03/23 capsule omeprazole 20 mg capsule,delayed 20 mg PO DAILY@1630 02/05/23 11/03/23 release amantadine HCl 100 mg capsule 100 mg PO BID 11/03/23 11/03/23 Previous Rx's Medication Instructions Recorded acetaminophen 325 mg tablet 650 mg (2 x 325 mg) PO Q6H PRN 06/24/23 (Tylenol) pain #20 tabs lidocaine 5 % topical patch 1 patch topical DAILY PRN pain #15 06/24/23 ea Allergies Allergy/AdvReac Type Severity Reaction Status Date / Time Sulfa (Sulfonamide Allergy Vomiting Verified 02/05/23 15:25 Antibiotics) Review of Systems Review of Systems: Yes all other systems are reviewed and are negative PMFSH Past Medical History Onset Date is defined in the Problem List Problems that require an onset date and time if occurred within 24 hrs of arrival to the ED Aortic Dissection and Rupture; Neurologic impairment; Cardiopulmonary Arrest; Endotracheal Intubation; Insertion or Replacement of Mechanical Circulatory Assist Device Medical History (Updated 11/03/23 @ 01:49 by Jay Patterson MD) Hypothyroidism Hypertension Parkinsons disease Social History Social History Alcohol intake: never Smoked in Last 30 Days: No Any prior treatment program specific to substance use: No Advance Directives: No Advance Directives Information Provided: No Physical Exam ED Vital Signs: Vital Signs - 24 hr 11/02/23 18:38 11/02/23 18:50 11/02/23 23:43 Temperature 99.1 F 97.9 F Pulse Rate 99 98 Respiratory Rate 16 33 H Blood Pressure 120/57 L 116/65 Pulse Oximetry 100 98 Oxygen Delivery Method Room Air Room Air BMI result Body Mass Index 25.3 Appearance: Alert. Oriented X3. No acute distress. Eyes: PERRLA, No Nystagmus ENT: Pharynx normal. Oral Mucosa moist Neck: Normal inspection. Neck supple. CVS: Normal heart rate and rhythm. Pulses normal. Respiratory: No respiratory distress. Equal air entry bilateral, no wheezing/rales/rhonchi Abdomen: Soft and nontender. Bowel sounds are present, no mass palpable, no CVA tenderness Skin: Skin warm and dry. Normal skin color. Normal skin turgor. Extremities: No lower extremity edema. No calf tenderness Neuro: Oriented X 3. No motor deficit. No sensory deficit.No cerebellar signs , cranial nerves II-XII intact normal speech rest tremors and increased tone Medications Administered Generic Name Dose Route Start Last Admin Trade Name Freq PRN Reason Stop Dose Admin Sodium Chloride 1,000 mls @ 999 mls/hr 11/03/23 01:11 11/03/23 01:40 Ns IV 11/03/23 02:11 999 mls/hr .Q1H1M ONE Administration Discontinued Medications Generic Name Dose Route Start Last Admin Trade Name Zenon PRN Reason Stop Dose Admin Sodium Chloride 1,000 mls @ 999 mls/hr 11/02/23 19:05 11/02/23 19:12 Ns IV 11/02/23 20:05 999 mls/hr .Q1H1M ONE Administration Medical Decision Making Medical Decision Making [facility] Narrative: Patient with Parkinson disease with weakness workup is negative except for slightly elevated creatinine BUN suggestive of slight dehydration patient received 1 L IV fluids with only 250 cc out give another L of NS. At this time no signs of focal deficit no signs of CVA head CT is negative labs are stable otherwise urine showed 6-10 wbc's without any bacteria likely contamination per family patient lives alone unable to be managed at this time requesting to keeping the hospital there is no reason for admission at this time will get social studies teacher involved for rehab placement Differential Diagnosis Differential Diagnoses: The differential diagnosis associated with the presentation includes Metabolic encephalopathy/UTI/viral syndrome Admission/Observation Consideration of admission/observation: Escalation of care including admission/observation considered Lab Data [facility] Lab Attestation statement: I reviewed the patient's lab results. 11/02/23 20:24 11/02/23 20:24 Labs: Lab Results 11/02/23 11/02/23 Range/Units 20:24 23:30 WBC 8.4 (4.8-10.8) X10*3/uL RBC 4.41 (4.20-5.50) X10*6/uL Hgb 13.3 (12.0-16.0) g/dl Hct 39.7 (37.0-47.0) % MCV 90.0 (80.0-98.0) fL MCH 30.2 (27.0-33.0) pg MCHC 33.5 (31.0-35.0) g/dl RDW 15.4 (11.0-16.0) % Plt Count 219 D (160-400) X10*3/uL MPV 10.8 (9.4-12.3) fL Immature Gran % (Auto) 0.6 H (0.0-0.4) % Neut % (Auto) 74.5 H (45-73) % Lymph % (Auto) 14.0 L (20-40) % Jones % (Auto) 10.4 (2-11) % Eos % (Auto) 0.1 (0-4) % Baso % (Auto) 0.4 (0-2) % Lymph # (Auto) 1.2 (1.2-4.9) X10*3/uL Jones # (Auto) 0.9 (0.1-1.2) X10*3/uL Eos # (Auto) 0.0 (0.0-0.4) X10*3/uL Baso # (Auto) 0.0 (0.0-0.2) X10*3/uL Abs Immat Gran (auto) 0.05 H (0.00-0.03) X10*3/uL Absolute Neuts (auto) 6.3 (2.0-8.3) x10*3/uL Absolute Nucleated RBC 0.000 (0.0-0.012) X10*3/uL Nucleated RBC % (auto) 0.0 (0.0-0.2) /100WBC Sodium 131 L (135-145) mmol/L Potassium 3.5 (3.3-5.1) mmol/L Chloride 101 (96-108) mmol/L Carbon Dioxide 22 (22-29) mmol/L Anion Gap 12 (12-20) BUN 50 H (9-16) mg/dL Creatinine 1.25 (0.5-1.4) mg/dL Estim Creat Clear Calc 33.0 Estimated GFR 41 Random Glucose 94 (60-115) mg/dL Calcium 8.6 (8.4-10.2) mg/dL Magnesium 1.8 (1.6-2.6) mg/dL Total Bilirubin 0.8 (0.0-1.0) mg/dL AST 26 (5-31) U/L ALT 17 (0-31) U/L Alkaline Phosphatase 66 (39-117) U/L Total Protein 8.6 H (6.5-8.0) g/dL Albumin 3.1 L (3.5-5.0) g/dL Urine Color Dark Yellow Urine Appearance Clear Urine pH 5.5 (5.0-9.0) Ur Specific [place] 1.020 (1.005-1.025) Urine Protein Trace (Neg-Trace) mg/dL Urine Glucose (UA) Negative (Negative) mg/dL Urine Ketones Trace (Negative) mg/dL Urine Blood Negative (Negative) Urine Nitrite Negative (Negative) Ur Leukocyte Esterase Small (1+) H (Negative) Urine RBC 0-2 (0-2) /HPF Urine WBC 6-10 H (0-5) /HPF Ur Squamous Epith Cells 0-2 (0-2) /HPF Other Crystals Present Urine Bacteria None Seen (None Seen) Hyaline Casts 3-5 (0-2) /LPF COVID-19 (MEGHNA) Negative (Negative) COVID-19 Clin Com See Note Discharge Plan Discharge Clinical Impression: Weakness, Dehydration Patient Disposition: Still a Patient Prescriptions: No Action lidocaine 5 % adhesive patch,medicated 1 patch topical DAILY PRN (Reason: pain) Qty: 15 0RF Rx Instructions: leave on most painful area for up to 12 hrs acetaminophen [Tylenol] 325 mg tablet 650 mg PO Q6H PRN (Reason: pain) Qty: 20 0RF mycophenolate mofetil 250 mg capsule 500 mg PO BID cyanocobalamin (vitamin B-12) 1,000 mcg Tablet 1,000 mcg PO DAILY lisinopril 10 mg tablet 10 mg PO DAILY omeprazole 20 mg capsule,delayed release(DR/EC) 20 mg PO DAILY@1630 ibuprofen 600 mg tablet 600 mg PO TID PRN (Reason: Pain) carbidopa-levodopa 25-100 mg tablet 1 tab PO TID ferrous gluconate 324 mg (38 mg iron) tablet 324 mg PO DAILY levothyroxine 175 mcg capsule 175 mcg PO DAILY amantadine HCl 100 mg capsule 100 mg PO BID
[2023-11-02 18:31] VITALS: BP 117/60; PULSE 93; O2SAT 99
[2023-11-02 18:38] VITALS: BP 120/57; PULSE 99; RESP 16; O2SAT 100; BMI 25.3
[2023-11-02 18:50] VITALS: TEMP 37.3
[2023-11-02] MEDS: 0.9 % Sodium Chloride 1,000 ML 999 ML IV (19:12)
[2023-11-02 20:30] LABS: MANUAL DIFF FLAG NO
[2023-11-02 20:35] LABS: Basophils Percent Auto 0.4 % (0-2); Eosinophils Percent Auto 0.1 % (0-4); Hematocrit 39.7 % (37.0-47.0); Hemoglobin 13.3 g/dl (12.0-16.0); Imm Gran Abs Auto 0.05 X10*3/uL (0.00-0.03); Imm Gran Pct Auto 0.6 % (0.0-0.4); Lymphocytes Absolute Auto 1.2 X10*3/uL (1.2-4.9); Mean Corpuscular HGB Conc 33.5 g/dl (31.0-35.0); Mean Corpuscular Hemoglobin 30.2 pg (27.0-33.0); Mean Platelet Volume 10.8 fL (9.4-12.3); Monocytes Absolute Auto 0.9 X10*3/uL (0.1-1.2); Monocytes Percent Auto 10.4 % (2-11); Neutrophils Absolute Auto 6.3 x10*3/uL (2.0-8.3); Neutrophils Percent Auto 74.5 % (45-73); Platelet Count 219 X10*3/uL (160-400); Red Blood Count 4.41 X10*6/uL (4.20-5.50); Red Cell Distribution Width 15.4 % (11.0-16.0); White Blood Count 8.4 X10*3/uL (4.8-10.8)
[2023-11-02 20:44] LABS: Alanine Aminotransferase 17 U/L (0-31); Albumin Level 3.1 g/dL (3.5-5.0); Alkaline Phosphatase 66 U/L (39-117); Anion Gap 12 (12-20); Aspartate Amino Transferase 26 U/L (5-31); Bilirubin Total 0.8 mg/dL (0.0-1.0); Blood Urea Nitrogen 50 mg/dL (9-16); Calcium 8.6 mg/dL (8.4-10.2); Carbon Dioxide 22 mmol/L (22-29); Chloride 101 mmol/L (96-108); Estimated Glomerular Filt Rate 41; Glucose Random 94 mg/dL (60-115); Magnesium 1.8 mg/dL (1.6-2.6); Potassium 3.5 mmol/L (3.3-5.1); Sodium 131 mmol/L (135-145); Total Protein 8.6 g/dL (6.5-8.0)
[2023-11-02 20:46] LABS: COVID-19 Test Negative (Negative); IDNOW Serial# 08D9AD1C
--- NOTE | 2023-11-02 20:49 | PC.NURSE ---
Assumed care of patient at 1900. Pt lying in bed, son at bedside. IV fluids stated per DEC. labs drawn and semt by TreatsieKamla Salesfusiongiovani in place.
[2023-11-02 23:43] VITALS: BP 116/65; PULSE 98; RESP 33; TEMP 36.6; O2SAT 98
[2023-11-02 23:44] LABS: Appearance Urine Clear; Color Urine Dark Yellow; Glucose Urine UA Negative (Negative); Leukocyte Esterase Urine Small (1+) (Negative); Nitrite Urine Negative (Negative); PH 5.5 (5.0-9.0); UMIC TRIGGER UACC YES; Urine Blood Negative (Negative); Urine Ketones Trace mg/dL (Negative); Urine Protein Trace mg/dL (Neg-Trace)
[2023-11-02 23:55] LABS: Bacteria Urine None Seen (None Seen); Other Crystals Urine Present; RBC Urine 0-2 /HPF (0-2); Squamous Epithelial Cell Urine 0-2 /HPF (0-2); UACC Culture Trigger YES
[2023-11-03] MEDS: 0.9 % Sodium Chloride 1,000 ML 999 ML IV (01:40)
[2023-11-03 01:49] LABS: Thyroid Stimulating Hormone 0.78 uIU/mL (0.32-4.0)
[2023-11-03 06:00] VITALS: BP 142/94; PULSE 98; RESP 30; TEMP 36.4; O2SAT 97
[2023-11-03 08:45] VITALS: BP 155/89; PULSE 82; RESP 22; O2SAT 97
[2023-11-03] MEDS: Cyanocobalamin (Vitamin B-12) 1,000 MCG TABLET 1000 MCG PO (09:59)
[2023-11-03] MEDS: Omeprazole 20 MG CAPSULE.DR PO (09:59)
[2023-11-03] MEDS: Carbidopa/Levodopa 25/100 TABLET 1 TAB PO ×2 (09:59→15:24)
[2023-11-03] MEDS: Levothyroxine Sodium 175 MCG TABLET PO (10:00)
--- NOTE | 2023-11-03 11:11 | PC.NURSE ---
pt alert and oriented, vss, denies pain. rome-care done, barrier cream applied to buttocks, echo changed. pt pulled up and repositioned in bed. meds given as documented.
[2023-11-03 12:45] VITALS: BP 155/92; PULSE 87; RESP 19; O2SAT 96
--- NOTE | 2023-11-03 13:18 | MHC.CM.ED ---
Addendum entered by Scarlet Odom 11/03/23 14:45: Insurance auth has been obtained by [facility] [place]. Juan BERKOWITZ booked for 630pm. [facility] with chart. Patient, daughter Ene and Karen SOLOMON aware. Patient and Ene are concerned about patient transferring to rehab when she isn't able to keep food down d/t vomiting. Karen SOLOMON made aware. Original Note: Met with patient and daughter, Laura at patient's bedside. [facility], [facility], [facility], and [facility] [place] are able to offer a bed. Patient and Ene accept bed at [facility]. [facility] has been asked to go for ins auth. Continue to monitor for d/c needs.
[2023-11-03] MEDS: ondansetron HCL 4 MG/2 ML VIAL IVPUSH (14:21)
[2023-11-03 16:18] VITALS: BP 140/70; PULSE 87; RESP 29; TEMP 36.2; O2SAT 93
--- NOTE | 2023-11-03 16:28 | PC.NURSE ---
pt tolerated water post zofran, family feeding pt jello to PO challenge.
--- NOTE | 2023-11-03 17:39 | PC.NURSE ---
nurse to nurse given to [facility] [address] [facility]
[2023-11-03 19:52] VITALS: BP 131/65; PULSE 94; RESP 20; O2SAT 98
--- NOTE | 2023-11-03 20:19 | MHC.CM.ED ---
Pt awaiting transport to [place]. Tolerating jello and avelino yadiel. Juan called by this CM. Transport re-booked. Expect BLS transport about 10 pm. CM called [place] to be sure patient could arrive at that time. Per RN, she is there all night and patient can arrive at any time. Family present at bedside. CM apologized for confusion. Aware that BLS has been booked, with next available transport at 10 pm. Family will leave to eat dinner. Requested CM to call when BLS arrives. Family will met patient at [place]. CM contact card given with [place] contact information also. US aware. MED NEC and Face sheet were already with chart. CM will follow for discharge.
== END 2023-11-03 21:32 ==
PROVIDERS: Internal Medicine; Emergency Provider Emergency Medicine Emergency Medical Services; PCP Internal Medicine
DX: R41.0 Disorientation, unspecified (principal); R53.1 Weakness; R26.81 Unsteadiness on feet; R11.2 Nausea with vomiting, unspecified; Z11.52 Encounter for screening for COVID-19; Z20.822 Contact with and (suspected) exposure to COVID-19; Z79.899 Other long term (current) drug therapy
CPT/HCPCS: 70450; 80053; 81001; 83735; 84443; 85025; 87086; 87635; 96360; 96361; 97162; 99284; 99285; J2405

== ENCOUNTER 2024-03-23 14:15 | Outpatient (REF) | payer MEDICARE, SELFPAY | END 2024-03-23 14:16 | disposition home or self-care (01) | LOC: HO.LNP 14:15 | PROVIDERS: Visit Provider Internal Medicine | DX: N30.00 Acute cystitis without hematuria (principal); R30.0 Dysuria; R35.0 Frequency of micturition; B95.2 Enterococcus as the cause of diseases classified elsewhere | CPT/HCPCS: 87086; 87088; 87186 ==

== ENCOUNTER 2024-04-13 14:21 | Outpatient (AMB) | payer MEDICARE, SELFPAY ==
--- NOTE | 2024-04-13 14:32 | A.OFFVIS_ITS ---
Intake Visit Reasons: recurrent UTI Intake Note: New patient was referred By Dr Nj for Recurrent UTI Last Culture placed was treated with Cipro Antibiotic Allergies: Sulfa Patient states she can't tell when she has an infection there is no pain, states she usually just have Frequency UA culture has been sent Cis Coordinator Required: No Allergies Sulfa (Sulfonamide Antibiotics) Allergy (Verified 04/13/24 14:39) Vomiting Medication List - Last Reconciled 04/13/24 by Eliot Hager MD acetaminophen (Tylenol) 650 mg (2 x 325 mg) PO Q6H PRN amantadine HCl 100 mg PO BID carbidopa-levodopa 25-100 mg 1 tab PO TID cyanocobalamin (vitamin B-12) 1,000 mcg PO DAILY ferrous gluconate 324 mg PO DAILY ibuprofen 600 mg PO TID PRN levothyroxine 175 mcg PO DAILY lidocaine 5% 1 patch topical DAILY PRN lisinopril 10 mg PO DAILY mycophenolate mofetil 500 mg PO BID omeprazole 20 mg PO DAILY@1630 pantoprazole 40 mg PO DAILY HPI Comments Details: Melissa is a very pleasant female. She is a patient of . She has seen for the following urologic conditions - recurring UTI - unstable bladder setting of Parkinson's Recurrent UTI UA positive today Multiple recent positive cultures Most recent Enterococcus resistant to Levaquin and tetracycline Treat with Macrobid Start vitamin-C and methenamine with topical estrogen Parkinson's Incomplete bladder emptying Bladder instability Trial of daily low-dose tadalafil PFSH Medical History Hypothyroidism Hypertension Parkinsons disease Social History Alcohol intake: never Review of Systems Const Denies chills and Denies fever(s) Card Reports no additional complaints and Denies syncope Resp Denies cough GI Denies abdominal pain and Denies heartburn Reports as per HPI and Denies change in libido Neuro Denies syncope Psych Denies change in libido Endo Denies change in libido Physical Exam Const General: cooperative, healthy appearing, comfortable and no acute distress Orientation/consciousness: patient oriented x3 HEENT Face and sinus: Yes normal facial exam Mouth: moist mucous membranes Neck Neck: Yes normal visual inspection, Yes full ROM and Yes trachea midline Chest Chest palpation & inspection: normal inspection of the chest Resp Effort & Inspection: normal respiratory effort, able to speak in complete sentences and no respiratory distress GI Inspection: Yes normal to inspection Back/Spine/Pelvis Cervical Spine: normal cervical lordosis Thoracic/Lumbar Spine: thoracic and lumbar spine normal to inspection Skin General skin exam: no rashes or lesions noted Neuro General: patient oriented x3, gait normal, tone normal and moves all extremities Extrem General: Yes normal to inspection and Yes capillary refill normal Results AMB Urinalysis, Automated UA Leukoctes 70 Jolene/uL Last Edit by Elise Colon [facility] on 04/13/24 14:50 UA Nitrite Positive Last Edit by Elise Colon [facility] on 04/13/24 14:50 UA Urobilinogen 0.2 mg/dL Last Edit by Elise Colon A on 04/13/24 14:5 0 UA Protein 0 mg/dL Last Edit by Elise Colon [facility] on 04/13/24 14:50 UA pH 6.0 Last Edit by Elise Colon [facility] on 04/13/24 14:50 UA Blood 0 Carlin/uL Last Edit by Elise Colon [facility] on 04/13/24 14:50 UA Specific [place] 1.015 Last Edit by Elise Colon [facility] on 04/13/24 14: 50 UA Ketone Negative Last Edit by lEise Colon [facility] on 04/13/24 14:50 UA Bilirubin 0 mg/dL Last Edit by Elise Colon [facility] on 04/13/24 14:50 UA Glucose 0 mg/dL Last Edit by Elise Colon [facility] on 04/13/24 14:50 Results Reviewed Results Reviewed: Laboratory Last Values Urine pH (Auto) 6.0 04/13/24 14:40 Specific [place] (Auto) 1.015 04/13/24 14:40 Urine Protein (Auto) 0 mg/dL 04/13/24 14:40 Glucose (UA)(Auto) 0 mg/dL 04/13/24 14:40 Urine Ketones (Auto) Negative 04/13/24 14:40 Urine Blood (Auto) 0 Carlin/uL 04/13/24 14:40 Urine Nitrite (Auto) Positive 04/13/24 14:40 Urine Bilirubin (Auto) 0 mg/dL 04/13/24 14:40 Urine Urobilinogen (Auto) 0.2 mg/dL 04/13/24 14:40 Leukocyte Esterase (Auto) 70 Jolene/uL 04/13/24 14:40 Assessment & Plan Assessment & Plan (1) Recurrent UTI: Code(s): N39.0 - Urinary tract infection, site not specified Category: Medical (2) Bladder instability: Code(s): N32.89 - Other specified disorders of bladder Category: Medical Plan Start estradiol, tadalafil, vitamin-C and methenamine with Macrobid Orders: Orders AMB Urinalysis Automated Today Z13.9 - Encounter for screening, unspecified Urine Culture Today N39.0 - Urinary tract infection, site not specified Medications: New estradiol (Yuvafem) 10 mcg vaginal 2XW 90 days 26 tabs 1RF N39.0 - Urinary tract infection, site not specified, N95.2 - Postmenopausal atrophic vaginitis tadalafil 5 mg PO DAILY 90 days 90 tabs 0RF N32.89 - Other specified disorders of bladder methenamine hippurate 1 g PO DAILY 90 days 90 tabs 1RF N39.0 - Urinary tract infection, site not specified ascorbic acid (vitamin C) 1 g PO DAILY 90 days 90 tabs 1RF N39.0 - Urinary tract infection, site not specified nitrofurantoin macrocrystal must administer with a meal/food 100 mg PO BID 7 days 14 caps 0RF N39.0 - Urinary tract infection, site not specified Patient Instructions: Imaging studies, laboratory and physical exam results were discussed and reviewed in detail. No major barriers to patient understanding were identified. An opportunity to ask questions regarding the treatment plan was provided. All questions were answered. The patient expressed understanding and agreement with the above treatment plan. The patient is aware they should contact our office by phone for worsening of their current condition or the appearance of new urologic symptoms. Compliance is encouraged with any medications and followup testing that is ordered. It is a privilege to participate in the urologic care of your patient. If you have any questions or concerns regarding treatment for the above conditions, or other urologic issues, please do not hesitate to contact me. The office telephone contact is [phone]. This note is constructed using voice recognition software. While every effort has been made to ensure accuracy material control manager errors may have been included. Yours sincerely, Dr Eliot Hager MD, [facility] - Urology Providers of Expert, Compassionate Care for the Genitourinary System Coding Level of Care Code New Pt Level 4 (99449) Diagnoses Recurrent UTI N39.0 Bladder instability N32.89
== END 2024-04-13 15:09 | disposition home or self-care (01) ==
PROVIDERS: PCP Internal Medicine; Visit Provider Urology
DX: N39.0 Urinary tract infection, site not specified (principal); N32.89 Other specified disorders of bladder; Z13.9 Encounter for screening, unspecified
CPT/HCPCS: 99204

== ENCOUNTER 2024-04-13 14:21 | Outpatient (REF) | payer MEDICARE, SELFPAY | END 2024-04-13 14:22 | disposition home or self-care (01) | LOC: HO.LAB 14:21 | PROVIDERS: PCP Internal Medicine; Visit Provider Urology | DX: N39.0 Urinary tract infection, site not specified (principal); R33.9 Retention of urine, unspecified; N95.2 Postmenopausal atrophic vaginitis; G20.A1 Parkinson's disease without dyskinesia, without mention of fluctuations; N33 Bladder disorders in diseases classified elsewhere | CPT/HCPCS: 81003; 87086; 87088; 87186; 99202 ==

== ENCOUNTER 2024-06-16 10:56 | Outpatient (AMB) | payer MEDICARE, SELFPAY ==
--- NOTE | 2024-06-16 11:06 | MHC.OFFVIS ---
Intake Visit Reasons: 2M Follow Up-Urinalysis (Recurrent UTI) Intake Note: Patient is present for UA Check Urology Med: Methenamine Antibiotic Allergy: Sulfa Blood Thinner: None Patient is no longer taking Vitamin c, Tadalafil, Estradiol tablets Supervisor [employer] Required: No Allergies Sulfa (Sulfonamide Antibiotics) Allergy (Verified 06/16/24 11:15) Vomiting HPI Comments Details: Melissa is a very pleasant female. She is a patient of . She has seen for the following urologic conditions - recurring UTI - unstable bladder setting of Parkinson's Benefit from methenamine Negative urine today Continue and start Estrace cream Six-month follow-up nurse-practitioner Recurrent UTI Multiple recent positive cultures Most recent Enterococcus resistant to Levaquin and tetracycline -Treat with Macrobid Maintained on methenamine and topical Estrace Parkinson's Incomplete bladder emptying Bladder instability PFSH Medical History Hypothyroidism Hypertension Parkinsons disease Social History Alcohol intake: never Review of Systems Const Denies chills and Denies fever(s) Card Reports no additional complaints and Denies syncope Resp Denies cough GI Denies abdominal pain and Denies heartburn Reports as per HPI and Denies change in libido Neuro Denies syncope Psych Denies change in libido Endo Denies change in libido Physical Exam Const General: cooperative, healthy appearing, comfortable and no acute distress Orientation/consciousness: patient oriented x3 HEENT Face and sinus: Yes normal facial exam Mouth: moist mucous membranes Neck Neck: Yes normal visual inspection, Yes full ROM and Yes trachea midline Chest Chest palpation & inspection: normal inspection of the chest Resp Effort & Inspection: normal respiratory effort, able to speak in complete sentences and no respiratory distress GI Inspection: Yes normal to inspection Back/Spine/Pelvis Cervical Spine: normal cervical lordosis Thoracic/Lumbar Spine: thoracic and lumbar spine normal to inspection Skin General skin exam: no rashes or lesions noted Neuro General: patient oriented x3, gait normal, tone normal and moves all extremities Extrem General: Yes normal to inspection and Yes capillary refill normal Results AMB Urinalysis, Automated UA Leukoctes 70 Jolene/uL Last Edit by SANTOS Shah on 06/16/24 11:29 UA Nitrite Negative Last Edit by Elise Colon, RMA on 06/16/24 11:29 UA Urobilinogen 0.2 mg/dL Last Edit by Elise Colon, RMA on 06/16/24 11:29 UA Protein 0 mg/dL Last Edit by Elise Colon, RMA on 06/16/24 11:29 UA pH 6.0 Last Edit by Elise Colon, RMA on 06/16/24 11:29 UA Blood 0 Carlin/uL Last Edit by Elise Colon, RMA on 06/16/24 11:29 UA Specific [place] 1.005 Last Edit by Elise Colon, RMA on 06/16/24 11:29 UA Ketone Negative Last Edit by Elise Colon, RMA on 06/16/24 11:29 UA Bilirubin 0 mg/dL Last Edit by Elise Cooln, RMA on 06/16/24 11:29 UA Glucose 0 mg/dL Last Edit by Elise Colon, RMA on 06/16/24 11:29 Assessment & Plan Assessment & Plan (1) Recurrent UTI: Code(s): N39.0 - Urinary tract infection, site not specified Category: Medical (2) Bladder instability: Code(s): N32.89 - Other specified disorders of bladder Category: Medical Plan Six-month follow-up nurse-practitioner Orders: Orders AMB Urinalysis Automated Today Z13.9 - Encounter for screening, unspecified Medications: New estradiol 0.01%(0.1mg/gram) pea-sized to urethra 3 times a week 30 days 42.5 grams 2RF N36.2 - Urethral caruncle, N39.0 - Urinary tract infection, site not specified, N95.2 - Postmenopausal atrophic vaginitis Refilled methenamine hippurate 1 g PO DAILY 90 days 90 tabs 1RF N39.0 - Urinary tract infection, site not specified Discontinued estradiol (Yuvafem) Discontinued Reason: Patient no longer taking 10 mcg vaginal 2XW 90 days 26 tabs 1RF N39.0 - Urinary tract infection, site not specified, N95.2 - Postmenopausal atrophic vaginitis tadalafil Discontinued Reason: Patient no longer taking 5 mg PO DAILY 90 days 90 tabs 0RF N32.89 - Other specified disorders of bladder Patient Instructions: Imaging studies, laboratory and physical exam results were discussed and reviewed in detail. No major barriers to patient understanding were identified. An opportunity to ask questions regarding the treatment plan was provided. All questions were answered. The patient expressed understanding and agreement with the above treatment plan. The patient is aware they should contact our office by phone for worsening of their current condition or the appearance of new urologic symptoms. Compliance is encouraged with any medications and followup testing that is ordered. It is a privilege to participate in the urologic care of your patient. If you have any questions or concerns regarding treatment for the above conditions, or other urologic issues, please do not hesitate to contact me. The office telephone contact is [phone]. This note is constructed using voice recognition software. While every effort has been made to ensure accuracy transcription typist errors may have been included. Yours sincerely, Dr Eliot Hager MD, [facility] - Urology Providers of Expert, Compassionate Care for the Genitourinary System Coding Level of Care Code Est Pt Level 3 (57580) Diagnoses Recurrent UTI N39.0 Bladder instability N32.89
== END 2024-06-16 11:39 | disposition home or self-care (01) ==
PROVIDERS: PCP Internal Medicine; Visit Provider Urology
DX: N39.0 Urinary tract infection, site not specified (principal); N32.89 Other specified disorders of bladder; Z13.9 Encounter for screening, unspecified
CPT/HCPCS: 99213

== ENCOUNTER → 2024-06-16 10:56 | Outpatient (BNVA) | payer MEDICARE, SELFPAY | PROVIDERS: PCP Internal Medicine; Visit Provider Urology | DX: R33.9 Retention of urine, unspecified (principal); N32.89 Other specified disorders of bladder; N39.0 Urinary tract infection, site not specified; N36.2 Urethral caruncle; N95.2 Postmenopausal atrophic vaginitis; G20.A1 Parkinson's disease without dyskinesia, without mention of fluctuations | CPT/HCPCS: 81003; 99212 ==

== ENCOUNTER 2024-09-20 16:35 | Outpatient (REF) | payer MEDICARE, SELFPAY ==
[2024-09-20 16:57] LABS: MANUAL DIFF FLAG NO
[2024-09-20 17:12] LABS: Basophils Percent Auto 0.9 % (0-2); Eosinophils Absolute Auto 0.1 X10*3/uL (0.0-0.4); Eosinophils Percent Auto 3.8 % (0-4); Hematocrit 35.2 % (37.0-47.0); Hemoglobin 11.5 g/dl (12.0-16.0); Imm Gran Abs Auto 0.01 X10*3/uL (0.00-0.03); Imm Gran Pct Auto 0.3 % (0.0-0.4); Lymphocytes Absolute Auto 1.2 X10*3/uL (1.2-4.9); Lymphocytes Percent Auto 37.3 % (20-40); Mean Corpuscular HGB Conc 32.7 g/dl (31.0-35.0); Mean Corpuscular Hemoglobin 28.3 pg (27.0-33.0); Mean Corpuscular Volume 86.7 fL (80.0-98.0); Mean Platelet Volume 11.6 fL (9.4-12.3); Monocytes Absolute Auto 0.4 X10*3/uL (0.1-1.2); Monocytes Percent Auto 11.3 % (2-11); Neutrophils Absolute Auto 1.5 x10*3/uL (2.0-8.3); Neutrophils Percent Auto 46.4 % (45-73); Platelet Count 173 X10*3/uL (160-400); Red Blood Count 4.06 X10*6/uL (4.20-5.50); Red Cell Distribution Width 15.2 % (11.0-16.0); White Blood Count 3.2 X10*3/uL (4.8-10.8)
[2024-09-20 17:39] LABS: Alanine Aminotransferase 8 U/L (0-31); Albumin Level 3.3 g/dL (3.5-5.0); Anion Gap 11 (12-20); Aspartate Amino Transferase 26 U/L (5-31); Bilirubin Total 0.3 mg/dL (0.0-1.0); Blood Urea Nitrogen 19 mg/dL (9-16); Calcium 9.2 mg/dL (8.4-10.2); Carbon Dioxide 25 mmol/L (22-29); Chloride 104 mmol/L (96-108); Estimated Glomerular Filt Rate > 60; Glucose Random 94 mg/dL (60-115); Potassium 4.4 mmol/L (3.3-5.1); Sodium 136 mmol/L (135-145); Total Protein 8.3 g/dL (6.5-8.0)
[2024-09-20 17:54] LABS: Ferritin 22 ng/mL (10-250); Thyroid Stimulating Hormone 0.01 uIU/mL (0.32-4.0)
[2024-09-20 17:55] LABS: Alkaline Phosphatase 102 U/L (39-117)
== END 2024-09-20 16:36 | disposition home or self-care (01) ==
LOC: HO.LAB 16:35
PROVIDERS: PCP Internal Medicine; Visit Provider Internal Medicine
DX: D50.8 Other iron deficiency anemias (principal); E03.8 Other specified hypothyroidism; G61.81 Chronic inflammatory demyelinating polyneuritis; I10 Essential (primary) hypertension
CPT/HCPCS: 36415; 80053; 82728; 84443; 85025

== ENCOUNTER 2024-12-15 11:30 | Outpatient (REF) | payer MEDICARE, SELFPAY ==
--- OUTSIDE RECORDS SUMMARY | 2024-12-15 12:54 | XMS_ITS | Clinical Summary ---
Author Organization [facility] Address [address] [place] [address] Care Team Providers Care Vacuum Metalizer Operator Name Role Phone Helder Rob MD Primary Care Provider [phone] Allergies Active Allergy Reactions Criticality Noted Date Comments Sulfamethoxazole-Trimethoprim 2018 Medications Medication Sig Dispensed Refills Start Date End Date Status aspirin EC 81 MG tablet Take 81 mg by mouth daily. 0 Active Calcium Carbonate-Vitamin D (CALCIUM 500 + D) 500-125 MG-UNIT TABS Take 1 tablet by mouth daily. 0 Active carbidopa-levodopa (SINEMET) 25-100 MG per tablet Take 1 tablet by mouth 3 (three) times a day. 0 Active mycophenolate (CELLCEPT) 500 MG tablet Take 500 mg by mouth 2 (two) times a day. 0 Active cyanocobalamin 2000 MCG tablet Take 2,000 mcg by mouth daily. 0 Active fexofenadine (DEBBIE) 180 MG tablet Take 180 mg by mouth daily. 0 Active hydroxychloroquine (PLAQUENIL) 200 MG tablet Take 200 mg by mouth daily. 0 Active lisinopril (PRINIVIL,ZESTRIL) tablet 10 mg Take 10 mg by mouth daily. 0 Active LORazepam (ATIVAN) 0.5 MG tablet Take 0.5 mg by mouth every 6 (six) hours as needed. 0 Active [place] 3 1200 MG CAPS Take 1,200 mg by mouth 2 (two) times a day. 0 Active omeprazole (PriLOSEC) 20 MG capsule Take 20 mg by mouth daily. 0 Active Rasagiline Mesylate (AZILECT) 1 MG TABS tablet Take 1 mg by mouth daily. 0 Active cholecalciferol (VITAMIN D3) 1000 units tablet Take 1,000 Units by mouth daily. 0 Active Levothyroxine Sodium 150 MCG CAPS Take 150 mcg by mouth daily. 0 Active Active Problems Problem Noted Date Diagnosed Date Leukopenia 05/13/2019 Drug-induced constipation 04/13/2019 Microcytic anemia 04/12/2019 Iron deficiency anemia 04/12/2019 Low folate 04/12/2019 Rheumatoid arthritis involving multiple sites Primary parkinsonism 04/12/2019 Social History Tobacco Use Types Packs/Day Years Used Date Smoking Tobacco: Former Smokeless Tobacco: Never Alcohol Use Standard Drinks/Week Comments Yes 0 (1 standard drink = 0.6 oz pur e alcohol) Very rare Sex and Gender Information Value Date Recorded Sex Assigned at Not on file Gender Identity Not on file Sexual Orientation Not on file Last Filed Vital Signs Vital Sign Reading Time Taken Comments Blood Pressure 143/76 05/13/2019 11:04 AM EDT Pulse 101 05/13/2019 11:04 AM EDT Temperature 36.7 ??C (98 ??F) 05/13/2019 11:04 AM EDT Respiratory Rate - - Oxygen Saturation - - Inhaled Oxygen Concentration - - Weight 98.4 kg (217 lb) 05/13/2019 11:04 AM EDT Height 152.4 cm (5') 05/13/2019 11:04 AM EDT Body Mass Index 42.38 05/13/2019 11:04 AM EDT Plan of Treatment Health Maintenance Due Date Last Done Comments COVID-19 Vaccine (#1) 02/14/1950 Pneumococcal Vaccine (1 of 2 - PCV) 02/14/1950 Depression Screening 1956 Preventative Health Evaluation 02/14/1962 DTap / Tdap / Td (1 - Tdap) 02/14/1963 Shingrix-Zoster Vaccine (1 of 2) 02/14/1963 Fall Risk Assessment 02/14/2009 Osteoporosis Screening (DEXA Scan) 02/14/2009 RSV Adult > 60+ Yrs or Pregn ant (1 - 1-dose 75+ series) 02/14/2019 Influenza Vaccine (#1) 2024 Hepatitis B Vaccines Aged Out No long er eligible based on patient's age to complete this topic RSV Ped < 20 months Aged Out No longe r eligible based on patient's age to complete this topic Care Teams Vacuum Metalizer Operator Relationship Specialty Start Date End Date Helder Rob MD [address] [place] [address] PCP - General Internal Medicine 04/12/19
[2024-12-15 13:10] LABS: Erythrocyte Sedimentation Rate 57 MM/HR (0-20)
[2024-12-16 21:24] LABS: Lyme Abs Screen <0.90 index
== END 2024-12-15 11:31 | disposition home or self-care (01) ==
LOC: HO.LAB 11:30
PROVIDERS: PCP Internal Medicine; Visit Provider Psychiatry & Neurology Neurology
DX: G62.9 Polyneuropathy, unspecified (principal)
CPT/HCPCS: 36415; 85652; 86617; 86618

== ENCOUNTER 2024-12-22 15:02 | Outpatient (REF) | payer MEDICARE, SELFPAY ==
[2024-12-22 15:14] LABS: MANUAL DIFF FLAG NO
[2024-12-22 15:39] LABS: Basophils Percent Auto 0.5 % (0-2); Eosinophils Absolute Auto 0.1 X10*3/uL (0.0-0.4); Eosinophils Percent Auto 2.2 % (0-4); Hematocrit 35.3 % (37.0-47.0); Hemoglobin 11.4 g/dl (12.0-16.0); Imm Gran Abs Auto 0.01 X10*3/uL (0.00-0.03); Imm Gran Pct Auto 0.2 % (0.0-0.4); Lymphocytes Absolute Auto 1.2 X10*3/uL (1.2-4.9); Lymphocytes Percent Auto 22.1 % (20-40); Mean Corpuscular HGB Conc 32.3 g/dl (31.0-35.0); Mean Corpuscular Volume 83.6 fL (80.0-98.0); Monocytes Absolute Auto 0.6 X10*3/uL (0.1-1.2); Monocytes Percent Auto 10.9 % (2-11); Neutrophils Absolute Auto 3.5 x10*3/uL (2.0-8.3); Neutrophils Percent Auto 64.1 % (45-73); Platelet Count 161 X10*3/uL (160-400); Red Blood Count 4.22 X10*6/uL (4.20-5.50); Red Cell Distribution Width 17.3 % (11.0-16.0); White Blood Count 5.5 X10*3/uL (4.8-10.8)
[2024-12-22 16:22] LABS: Ferritin 24 ng/mL (10-250); Thyroid Stimulating Hormone < 0.01 uIU/mL (0.32-4.0)
--- OUTSIDE RECORDS SUMMARY | 2024-12-22 18:22 | XMS_ITS | Clinical Summary ---
Author Organization [facility] Address [address] [place] [address] Care Team Providers Care It Consultant Name Role Phone Helder Rob MD Primary Care Provider [phone] Allergies Active Allergy Reactions Criticality Noted Date [...] 6 (six) hours as needed. 0 Active [place] 3 1200 MG CAPS Take 1,200 mg [...] age to complete this topic Care Teams It Consultant Relationship Specialty Start Date End Date Helder Rob MD [address] [place] [address] PCP - General Internal Medicine 04/12/19
== END 2024-12-22 15:03 | disposition home or self-care (01) ==
LOC: HO.LAB 15:02
PROVIDERS: PCP Internal Medicine; Visit Provider Internal Medicine
DX: D50.8 Other iron deficiency anemias (principal); E05.90 Thyrotoxicosis, unspecified without thyrotoxic crisis or storm; G61.81 Chronic inflammatory demyelinating polyneuritis; I10 Essential (primary) hypertension
CPT/HCPCS: 36415; 82728; 84443; 85025

== ENCOUNTER 2025-03-09 11:12 | Outpatient (AMB) | payer MEDICARE, SELFPAY ==
--- NOTE | 2025-03-09 11:13 | MHC.OFFVIS ---
Intake Visit Reasons: 6m followup Intake Note: Pt presents to the office today for a 6 month follow up. Allergies Sulfa (Sulfonamide Antibiotics) Allergy (Verified 03/09/25 11:13) Vomiting HPI Comments Details: Melissa is a very pleasant female. She is a patient of . She has seen for the following urologic conditions - recurring UTI - unstable bladder setting of Parkinson's Benefit from methenamine UA positive today Urine culture Start Levaquin Continue methenamine Encourage dried fruit for GI constipation prevent Recurrent UTI Last positive culture March 2024 Most recent Enterococcus resistant to Levaquin and tetracycline Maintained on methenamine and topical Estrace Parkinson's Incomplete bladder emptying Bladder instability PFSH Medical History Hypothyroidism Hypertension Parkinsons disease Social History Alcohol intake: never Review of Systems Const Denies chills and Denies fever(s) Card Reports no additional complaints and Denies syncope Resp Denies cough GI Denies abdominal pain and Denies heartburn Reports as per HPI and Denies change in libido Neuro Denies syncope Psych Denies change in libido Endo Denies change in libido Physical Exam Const General: cooperative, healthy appearing, comfortable and no acute distress Orientation/consciousness: patient oriented x3 HEENT Face and sinus: Yes normal facial exam Mouth: moist mucous membranes Neck Neck: Yes normal visual inspection, Yes full ROM and Yes trachea midline Chest Chest palpation & inspection: normal inspection of the chest Resp Effort & Inspection: normal respiratory effort, able to speak in complete sentences and no respiratory distress GI Inspection: Yes normal to inspection Back/Spine/Pelvis Cervical Spine: normal cervical lordosis Thoracic/Lumbar Spine: thoracic and lumbar spine normal to inspection Skin General skin exam: no rashes or lesions noted Neuro General: patient oriented x3, gait normal, tone normal and moves all extremities Extrem General: Yes normal to inspection and Yes capillary refill normal Results AMB Urinalysis, Automated UA Leukoctes 500 Jolene/uL Last Edit by Gifty Norman CMA on 03/09/25 11:19 UA Nitrite Positive Last Edit by Gifty Norman CMA on 03/09/25 11:19 UA Urobilinogen 0.2 mg/dL Last Edit by Gifty Norman CMA on 03/09/25 11:19 UA Protein 15 mg/dL Last Edit by Gifty Norman CMA on 03/09/25 11:19 UA pH 6.0 Last Edit by Gifty Norman CMA on 03/09/25 11:19 UA Blood 0 Carlin/uL Last Edit by Gifty Norman CMA on 03/09/25 11:19 UA Specific [place] 1.030 Last Edit by Gifty Norman CMA on 03/09/25 11:19 UA Ketone Positive Last Edit by Gifty Norman CMA on 03/09/25 11:19 UA Bilirubin 0 mg/dL Last Edit by Gifty Norman CMA on 03/09/25 11:19 UA Glucose 0 mg/dL Last Edit by Gifty Norman CMA on 03/09/25 11:19 Results Reviewed Results Reviewed: Laboratory Last Values Urine pH (Auto) 6.0 03/09/25 11:16 Specific [place] (Auto) 1.030 03/09/25 11:16 Urine Protein (Auto) 15 mg/dL 03/09/25 11:16 Glucose (UA)(Auto) 0 mg/dL 03/09/25 11:16 Urine Ketones (Auto) Positive 03/09/25 11:16 Urine Blood (Auto) 0 Carlin/uL 03/09/25 11:16 Urine Nitrite (Auto) Positive 03/09/25 11:16 Urine Bilirubin (Auto) 0 mg/dL 03/09/25 11:16 Urine Urobilinogen (Auto) 0.2 mg/dL 03/09/25 11:16 Leukocyte Esterase (Auto) 500 Jolene/uL 03/09/25 11:16 Assessment & Plan Assessment & Plan (1) Recurrent UTI: Code(s): N39.0 - Urinary tract infection, site not specified Category: Medical (2) Bladder instability: Code(s): N32.89 - Other specified disorders of bladder Category: Medical Plan Six-month follow-up nurse-practitioner Orders: Orders Urine Culture Today N39.0 - Urinary tract infection, site not specified AMB Urinalysis Automated Today N39.0 - Urinary tract infection, site not specified Medications: Refilled methenamine hippurate 1 g PO DAILY 90 days 90 tabs 1RF N39.0 - Urinary tract infection, site not specified levofloxacin 250 mg PO DAILY 5 days 5 tabs 0RF Patient Instructions: This note is constructed using voice recognition software. While every effort has been made to ensure accuracy grocery store courtesy clerk errors may have been included. Imaging studies, laboratory and physical exam results were discussed and reviewed in detail. No major barriers to patient understanding were identified. An opportunity to ask questions regarding the treatment plan was provided. All questions were answered. The patient expressed understanding and agreement with the above treatment plan. The patient is aware they should contact our office by phone for worsening of their current condition or the appearance of new urologic symptoms. Compliance is encouraged with any medications and followup testing that is ordered. It is a privilege to participate in the urologic care of your patient. If you have any questions or concerns regarding treatment for the above conditions, or other urologic issues, please do not hesitate to contact me. The office telephone contact is [phone]. Sincerely, Dr Eliot Hager MD, [facility] - Urology Compassionate Specialist Care for the Genitourinary System Coding Level of Care Code Est Pt Level 4 (39330) Complex EM visit Add On G2211 Diagnoses Recurrent UTI N39.0 Bladder instability N32.89
--- OUTSIDE RECORDS SUMMARY | 2025-03-09 12:27 | XMS_ITS | Clinical Summary ---
Author Organization [facility] Address [address] [place] [address] Care Team Providers Care Script Worker Name Role Phone Helder Rob MD Primary Care Provider [phone] Allergies Active Allergy Reactions Criticality Noted Date [...] 6 (six) hours as needed. 0 Active [place] 3 1200 MG CAPS Take 1,200 mg [...] age to complete this topic Care Teams Script Worker Relationship Specialty Start Date End Date Helder Rob MD [address] [place] [address] PCP - General Internal Medicine 04/12/19
== END 2025-03-09 12:00 | disposition home or self-care (01) ==
LOC: HO.HUSH 11:12
PROVIDERS: PCP Internal Medicine; Visit Provider Urology
DX: N39.0 Urinary tract infection, site not specified (principal); N32.89 Other specified disorders of bladder
CPT/HCPCS: 99214; G2211

== ENCOUNTER 2025-03-09 11:12 | Outpatient (REF) | payer MEDICARE, SELFPAY ==
--- OUTSIDE RECORDS SUMMARY | 2025-03-09 12:56 | XMS_ITS | Clinical Summary ---
Author Organization [facility] Address [address] [place] [address] Care Team Providers Care Telecommunication Operator Name Role Phone Helder Rob MD Primary Care Provider [phone] Allergies Active Allergy Reactions Criticality Noted Date [...] 6 (six) hours as needed. 0 Active [place] 3 1200 MG CAPS Take 1,200 mg [...] age to complete this topic Care Teams Telecommunication Operator Relationship Specialty Start Date End Date Helder Rob MD [address] [place] [address] PCP - General Internal Medicine 04/12/19
[2025-03-09 14:32] LABS: Rheumatoid Factor 74.2 IU/mL (<15.0)
[2025-03-09 14:37] LABS: C Reactive Protein 0.83 mg/dL (< or = 0.50)
[2025-03-09 14:49] LABS: Erythrocyte Sedimentation Rate 57 MM/HR (0-20)
== END 2025-03-09 11:13 | disposition home or self-care (01) ==
LOC: HO.LAB 11:12
PROVIDERS: Psychiatry & Neurology Neurology; PCP Internal Medicine; Visit Provider Urology
DX: N39.0 Urinary tract infection, site not specified (principal); N32.89 Other specified disorders of bladder; M25.50 Pain in unspecified joint
CPT/HCPCS: 36415; 81003; 82550; 84443; 84550; 85652; 86140; 86200; 86431; 87086; 99212

== ENCOUNTER 2025-03-09 12:20 | Outpatient (REF) | payer MEDICARE, SELFPAY ==
[2025-03-09 14:35] LABS: Rheumatoid Factor 74.7 IU/mL (<15.0)
[2025-03-09 15:04] LABS: Erythrocyte Sedimentation Rate 59 MM/HR (0-20)
[2025-03-09 15:07] LABS: TSH reflex Free T4 2.32 uIU/mL (0.32-4.0)
[2025-03-10 20:04] LABS: Cyclic Citrullinated Peptide 40 UNITS
== END 2025-03-09 12:21 | disposition home or self-care (01) ==
LOC: HO.10HDL 12:20
PROVIDERS: Visit Provider Internal Medicine
DX: Z13.89 Encounter for screening for other disorder (principal)
CPT/HCPCS: 36415; 84443; 85652; 86200; 86431

== ENCOUNTER 2025-06-21 12:51 | Outpatient (REF) | payer MEDICARE, SELFPAY ==
--- OUTSIDE RECORDS SUMMARY | 2025-06-22 12:46 | XMS_ITS | Clinical Summary ---
Author Organization [facility] Address [address] [place] [address] Care Team Providers Care Entry Level Electrical Engineer Name Role Phone Helder Rob MD Primary Care Provider [phone] Allergies Active Allergy Reactions Criticality Noted Date [...] 6 (six) hours as needed. 0 Active Pixley 3 1200 MG CAPS Take 1,200 mg [...] age to complete this topic Care Teams Entry Level Electrical Engineer Relationship Specialty Start Date End Date Helder Rob MD [address] [place] [address] PCP - General Internal Medicine 04/12/19
== END 2025-06-21 12:52 | disposition home or self-care (01) ==
LOC: HO.LNP 12:51
PROVIDERS: Visit Provider Internal Medicine
DX: D50.8 Other iron deficiency anemias (principal); E03.8 Other specified hypothyroidism; G20.C Parkinsonism, unspecified; G61.81 Chronic inflammatory demyelinating polyneuritis; I10 Essential (primary) hypertension; M86.9 Osteomyelitis, unspecified
CPT/HCPCS: 87086; 87088; 87186

== ENCOUNTER 2025-06-21 13:50 | Outpatient (AMB) | payer MEDICARE, SELFPAY ==
--- NOTE | 2025-06-21 13:55 | A.OFFVIS_ITS ---
Intake Visit Reasons: 2 Months CIPD - R/s from 06/29/25 Allergies Sulfa (Sulfonamide Antibiotics) Allergy (Verified 03/09/25 11:13) Vomiting HPI Comments Details: 80 yo woman with RA with diagnosis of?CIDP since 2010, whe was admitted at [facility] with progressive weakness of upper and lower extremiities. Imaging did not reveal any explanation. EMG/NCS by Dr. Harris revealed significantly delayed distal latencies and conduction velocities in 20s with some axonal loss. CSF protein wsa 81 with normal cells and glucose. She was treated for GBS with ivIg, which has continued since then. Apparently, she has not liked treatment with prednisone or azathioprine. She has been able to walk but uses a wheel chair for appointments. She is presenting with Chronic Inflammatory Demyelinating Polyneuropathy (CIDP), Parkinson's disease, and Rheumatoid Arthritis (RA). The CIDP is managed effectively with IVIG therapy given every four weeks, with the patient requiring a total dose of 120 grams divided over two days. She takes mycophenolate mofetil daily on an empty stomach to support CIDP management. Parkinson?s disease is controlled with a regimen of amantadine and carbidopa- levodopa, which the patient is taking regularly. For RA, the patient experiences intermittent exacerbations. Current treatment with prednisone has been adjusted recently, although specific dosages were not provided during the visit. Reports of recurrent UTIs and a recent episode of stomach issues emphasize the need for further evaluation, particularly regarding her inflammatory markers and rheumatologic consultation, which has been challenging to schedule. [facility] Medical History (Updated 06/21/25 @ 14:00 by Katie Garcia MD) Rheumatoid arthritis CIDP (chronic inflammatory demyelinating polyneuropathy) Peripheral neuropathy Hypothyroidism Hypertension Parkinsons disease Social History Alcohol intake: never Review of Systems Const Details: - Neurological: Reports chronic inflammatory demyelinating polyneuropathy and mild Parkinson's disease. - Musculoskeletal: Reports rheumatoid arthritis. - Genitourinary: Reports recurrent urinary tract infections. - Gastrointestinal: Reports previous stomach issues. Assessment & Plan Assessment & Plan (1) CIDP (chronic inflammatory demyelinating polyneuropathy): Comment: EMG/NCS by Dr. Harris in 2010: Significantly delayed distal latencies and velocities in 20s with some axonal loss LP at [facility] in 2011: Glu 65, Pro [address] brain WO at [facility] in Oct 2023: Mild diff atrophy MRI LS spine at [facility] in 2019: No sig lesion more than aging changes Code(s): G61.81 - Chronic inflammatory demyelinating polyneuritis Category: Medical (2) Parkinsonism: Code(s): G20.C - Parkinsonism, unspecified Category: Medical Qualifiers: Parkinsonism type: unspecified Qualified Code(s): G20.C - Parkinsonism, unspecified Plan Impression: a:CIDP b: Mild Parkinsonism c: RA Rec: a: IVIg Gammagard 60g IV for two days, every month b: Mycophenylate 500mg, two in am c: Carbidopa/levodopa 25/100, 3 times a day d: Amantadine 100mg twice a day e: She is advised to see her movement education specialist for RA c: Take a multivitamin daily Medications: New amantadine HCl 100 mg PO BID 180 caps 1RF carbidopa-levodopa 25-100 mg 1 tab PO TID 270 tabs 1RF Coding Level of Care Code Est Pt Level 5 (46841) Diagnoses CIDP (chronic inflammatory demyelinating polyneuropathy) G61.81 Parkinsonism, unspecified Parkinsonism type G20.C Parkinsonism type: unspecified
--- OUTSIDE RECORDS SUMMARY | 2025-06-21 14:40 | XMS_ITS ---
Author Name [facility] Organization Unknown Care Team Organization Name Specialty Phone Email Start Date End Da te [facility] A [facility] 11/03/2022 06/13/2024 [facility] Elise Salazar Primary Care 09/02/20222023
--- OUTSIDE RECORDS SUMMARY | 2025-06-21 14:40 | XMS_ITS | Clinical Summary ---
Author Organization [facility] Address [address] [place] [address] Care Team Providers Care Sisal Picker Name Role Phone Helder Rob MD Primary Care Provider [phone] Allergies Active Allergy Reactions Criticality Noted Date [...] 6 (six) hours as needed. 0 Active Mclean 3 1200 MG CAPS Take 1,200 mg [...] 101 05/13/2019 11:04 AM EDT Temperature 36.7 C (98 F) 05/13/2019 11:04 AM EDT Respiratory Rate - [...] 1-dose 75+ series) 02/14/2019 Influenza Vaccine (#1) 2025 Hepatitis B Vaccines Aged Out No long er eligible based on patient's age to complete this topic RSV Ped < 20 months Aged Out No longe r eligible based on patient's age to complete this topic Care Teams Sisal Picker Relationship Specialty Start Date End Date eHlder Rob MD [address] [place] [address] PCP - General Internal Medicine 04/12/19
== END 2025-06-21 14:05 | disposition home or self-care (01) ==
LOC: HO.HSM 13:51
PROVIDERS: PCP Internal Medicine; Visit Provider Psychiatry & Neurology Neurology
DX: G61.81 Chronic inflammatory demyelinating polyneuritis (principal); G20.C Parkinsonism, unspecified
CPT/HCPCS: 99214

== ENCOUNTER → 2025-06-21 13:50 | Outpatient (BNVA) | payer MEDICARE, SELFPAY | PROVIDERS: PCP Internal Medicine; Visit Provider Psychiatry & Neurology Neurology | DX: G61.81 Chronic inflammatory demyelinating polyneuritis (principal); G20.C Parkinsonism, unspecified; M06.9 Rheumatoid arthritis, unspecified | CPT/HCPCS: 99212 ==

== ENCOUNTER 2025-07-31 12:01 | Outpatient (REF) | payer MEDICARE, SELFPAY ==
--- OUTSIDE RECORDS SUMMARY | 2025-07-31 14:33 | XMS_ITS | Clinical Summary ---
Author Organization [facility] Address [address] [place] [address] Care Team Providers Care Bilingual Speech Language Pathologist Name Role Phone Helder Rob MD Primary Care Provider [phone] Allergies Active Allergy Reactions Criticality Noted Date [...] 6 (six) hours as needed. 0 Active Fontana 3 1200 MG CAPS Take 1,200 mg [...] age to complete this topic Care Teams Bilingual Speech Language Pathologist Relationship Specialty Start Date End Date Helder Rob MD [address] [place] [address] PCP - General Internal Medicine 04/12/19
== END 2025-07-31 12:02 | disposition home or self-care (01) ==
LOC: HO.10HDLNP 12:01
PROVIDERS: Visit Provider Internal Medicine
DX: I10 Essential (primary) hypertension (principal); D50.8 Other iron deficiency anemias; E03.8 Other specified hypothyroidism; G20.C Parkinsonism, unspecified; G61.81 Chronic inflammatory demyelinating polyneuritis; R06.9 Unspecified abnormalities of breathing; R82.90 Unspecified abnormal findings in urine
CPT/HCPCS: 87086; 87088; 87186